=== PATIENT | female | born 1935 | race Two or more races ===

== ENCOUNTER 2020-05-31 14:57 | Inpatient (IN) | payer MEDICARE, OTHER ==
[~2020-05-31] VITALS: Ht 167.6 cm; Wt 64.0 kg
[2020-05-31 16:27] LABS: ABG BASE EXCESS 0.7 mmol/L; ABG OXYGEN SATURATION 97.1 % (92.0-98.5); ABG PCO2 34.8 mmHg (35.0-45.0); ABG PH 7.459 (7.350-7.450); ABG PO2 92.1 mmHg (75.0-100.0); AaDO2 131.4 mmHg; COHb 0.8 % (0.5-1.5); O2Hb 96.3 % (94.0-97.0); SITE, ABG Right Brachial; VENT MODE, BG nasal cannula
--- NOTE | 2020-05-31 16:37 | NUR ---
Patient awake non distress oxygen @ 2 ,hooked in the monitor ,ekg ,blood drw .
--- NOTE | 2020-05-31 16:50 | NUR ---
.Patient has x 1 BM keep patient clean and dry ,covid swab obtained and send to lab
[2020-05-31 17:11] LABS: BASOPHILS % (AUTO) 0.3 % (0.0-2.0); EOSINOPHILS % (AUTO) 0.1 % (0.0-6.0); HEMATOCRIT 37 % (33-45); LYMPHOCYTES # (AUTO) 0.8 /CMM (0.8-4.8); LYMPHOCYTES % (AUTO) 13.9 % (20.0-44.0); MEAN CORPUSCULAR HGB CONC 33 g/dl (31.0-36.0); MEAN CORPUSCULAR VOLUME 87 fL (82-100); MONOCYTES # (AUTO) 0.2 /CMM (0.1-1.30); MONOCYTES % (AUTO) 3.2 % (2.0-12.0); NEUTROPHILS # (AUTO) 4.5 /CMM (1.8-8.9); NEUTROPHILS % (AUTO) 82.5 % (43.0-81.0); PLATELET COUNT (AUTO) 181 /CMM (150-450); RED BLOOD CELL COUNT(AUTO) 4.22 MIL/uL (4.0-5.2); WHITE BLOOD COUNT (AUTO) 5.4 K/uL (4.3-11.0)
--- NOTE | 2020-05-31 17:29 | NUR ---
Patient agrees for in and out cath noted sterile technue ,urine obatined and send to lab .
[2020-05-31 17:53] LABS: CALCIUM, SERUM 9.1 mg/dL (8.5-10.1); CREATININE 1.3 mg/dL (0.6-1.3); POTASSIUM 4.2 mmol/L (3.5-5.1)
[2020-05-31 17:59] LABS: ALBUMIN 2.7 g/dL (3.4-5.0); BILIRUBIN,DIRECT 0.2 mg/dL (0.0-0.2); BILIRUBIN,TOTAL 0.5 mg/dL (0.2-1.0); TOTAL PROTEIN, SERUM 7.2 g/dL (6.4-8.2)
[2020-05-31 18:12] LABS: BILIRUBIN,URINE NEGATIVE (NEGATIVE); COLOR,URINE YELLOW (YELLOW); LEUKOCYTE ESTERASE ,URINE NEGATIVE (NEGATIVE); NITRITE, URINE NEGATIVE (NEGATIVE); PH,URINE 5.5 (5.0-8.0); PROTEIN,URINE 100 mg/dl (NEGATIVE); UGLUCOSE 500 MG/DL mg/dL (NEGATIVE); UROBILINOGEN,URINE 0.2 EU/dL (0.2)
--- NOTE | 2020-05-31 18:15 | NUR ---
MOVE SHEET SUBMITTED AND CALLED FOR TELE BED.
[2020-05-31 18:21] LABS: BACTERIA,URINE RARE /HPF (None Seen); SQUAMOUS EPITHELIAL CELL,UR 0-2 /HPF (None Seen); URINE AMORPHOUS URATE Few /HPF (None Seen); WBC,URINE 0-2 /HPF (0-3)
[2020-05-31] MEDS ORDERED: DEXAMETHASONE SOD PHOSPHATE 10 MG/ML VIAL IV ONE (18:30)
[2020-05-31] MEDS ORDERED: NS 0.9% IV ONE (18:30)
[2020-05-31] MEDS ORDERED: CEFTRIAXONE 1 G in IV D5W 50 ML IV ONE (18:30)
--- NOTE | 2020-05-31 18:46 | NUR ---
GOT BED 208
[2020-05-31] MEDS ORDERED: CEFTRIAXONE 1GM BAG (ER ONLY) 50 ML IV ONE (18:51)
[2020-05-31] MEDS ORDERED: DEXAMETHASONE SOD PHOSPHATE 10 MG/ML VIAL ONE (18:51)
[2020-05-31] MEDS: AZITHROMYCIN 500 MG in IV D5W 250 ML IV ONE ×2 (19:20→19:26)
[2020-05-31] MEDS ORDERED: DEXTROSE 50%-WATER 50 ML DISP.SYRIN IV PRN (19:30)
[2020-05-31] MEDS ORDERED: DEXAMETHASONE SOD PHOSPHATE 10 MG/ML VIAL IV SCH (19:30)
[2020-05-31] MEDS ORDERED: AZITHROMYCIN 500 MG in IV D5W 250 ML IV SCH (19:30)
--- NOTE | 2020-05-31 19:30 | NUR ---
Transfer care to 208 with monitor report to HERNANDO harris
--- NOTE | 2020-05-31 19:31 | NUR ---
TELE/RN ADMITTING NOTES: REPORT GIVEN BY HERNANDO CUEVA FROM ER. PT ARRIVED AT THE UNIT AT 1927 VIA GURNEY UNDER ACLS PROTOCOL, IN STABLE CONDITION. SOB PRESENT ON EXERTION AND COUGHING ACTIVELY. VERBALLY EXPENSIVE AND ABLE TO MAKE NEEDS KNOWN. DENIES PAIN AT THIS TIME. ON 3L OXYGEN VIA NC, SATURATING AT 96%. ORIENTED TO UNIT AND STAFF. A/OX2-3, WITH EPISODES ON CONFUSION. WELSH SPEAKING. NEEDS TRANSLATION. TELE READING OF SR. SKIN IS INTACT, DRY AND WARM TO TOUCH. INITIAL VS STABLE. ON BED REST FOR NOW. PER PT FAMILY, PT CAN AMBULATE BEFORE AND DUE TO RECENT WEAKNESS, PT HAS BEEN ON BED REST. IV ON THE RIGHT AC #20G INTACT AND PATENT. WITH ATBX RUNNING. SAFETY MEASURES INITIATED. BED IN LOW, LOCKED POSITION WITH SR UPX2. CALL LIGHT WITHIN REACH. WILL CONTINUE TO MONITOR ACCORDINGLY.
[2020-05-31 20:00] VITALS: BP 153/64
[2020-05-31] MEDS ORDERED: Z GUARD REMEDY 2 OZ OINT TP PRN (20:00)
[2020-05-31] MEDS ORDERED: ONDANSETRON HCL/PF 4 MG/2 ML VIAL IVP PRN (20:00)
[2020-05-31] MEDS ORDERED: ENOXAPARIN SODIUM 40 MG/0.4 ML DISP.SYRIN SQ SCH (20:00)
[2020-05-31] MEDS: BLOOD SUGAR DIAGNOSTIC 1 EACH STRIP IN SCH ×2 (20:33→22:20)
[2020-05-31] MEDS: *INSULIN REGULAR(HUMULIN R)HUM 100 UNIT/ML VIAL SQ PRN ×2 (20:40→22:22)
--- NOTE | 2020-05-31 23:00 | NUR ---
TELE/RN NOTES: PT IV LINE STARTED TO HURT. INSERTED A NEW IV LINE ON THE LEFT UA #22G. INTACT AND PATENT.
[2020-06-01] VITALS: BP 129/72
[2020-06-01 04:00] VITALS: BP 154/64
[2020-06-01] MEDS: BLOOD SUGAR DIAGNOSTIC 1 EACH STRIP IN SCH ×4 (06:40→21:58)
[2020-06-01] MEDS: INSULIN REGULAR, HUMAN 100 UNIT/ML 3 ML VIAL SQ PRN ×3 (06:42→17:17)
--- NOTE | 2020-06-01 07:07 | NUR ---
TELE/RN CLOSING NOTES: PT REMAINS IN STABLE CONDITION. DENIES PAIN AT THIS TIME. ON 3L OXYGEN VIA NC, SATURATING AT 96%. A/OX2-3, WITH EPISODES ON CONFUSION. LITHUANIAN SPEAKING. NEEDS TRANSLATION. TELE READING OF SR. SKIN IS INTACT, DRY AND WARM TO TOUCH. ON BED REST FOR NOW. IV ON THE LEFT UA #22G INTACT AND PATENT. SAFETY MEASURES INITIATED. BED IN LOW, LOCKED POSITION WITH SR UPX2. CALL LIGHT WITHIN REACH. ALL NURSING NEEDS MET AND RENDERED. ALL DUE MEDS GIVEN ACCUCHECK FOR AC IS 243, ADMINISTERED 8 UNIT REG INSULIN PER SLIDING SCALE. GIVEN CRANBERRY JUICE PT. REQUESTED. WILL ENDORSE TO DAY SHIFT FOR MASSIMO.
[2020-06-01 07:27] LABS: BASOPHILS % (AUTO) 0.1 % (0.0-2.0); HEMATOCRIT 34 % (33-45); HEMOGLOBIN 10.8 g/dL (11.5-14.8); LYMPHOCYTES # (AUTO) 0.5 /CMM (0.8-4.8); LYMPHOCYTES % (AUTO) 13.5 % (20.0-44.0); MEAN CORPUSCULAR HGB CONC 32 g/dl (31.0-36.0); MEAN CORPUSCULAR VOLUME 89 fL (82-100); MONOCYTES # (AUTO) 0.1 /CMM (0.1-1.30); MONOCYTES % (AUTO) 3.7 % (2.0-12.0); NEUTROPHILS % (AUTO) 82.7 % (43.0-81.0); PLATELET COUNT (AUTO) 169 /CMM (150-450); RED BLOOD CELL COUNT(AUTO) 3.79 MIL/uL (4.0-5.2); WHITE BLOOD COUNT (AUTO) 3.7 K/uL (4.3-11.0)
--- NOTE | 2020-06-01 07:30 | NUR ---
CORRECTIONAL SUPERVISOR NOTES PT IN BED, AWAKE, ALERT AND VERBALLY RESPONSIVE, NO SIGN OF PAIN OR ANY DISCOMFORT, BREATHING PATTERN NORMAL, CALL LIGHT WITHIN REACH, ASSISTED WITH BREAKFAST, KEPT SENIOR SHAREPOINT ARCHITECT BED, NEEDS ATTENDED.
[2020-06-01 07:39] LABS: ALBUMIN 2.3 g/dL (3.4-5.0); BILIRUBIN,TOTAL 0.4 mg/dL (0.2-1.0); CALCIUM, SERUM 8.4 mg/dL (8.5-10.1); CREATININE 1.1 mg/dL (0.6-1.3); PHOSPHORUS 3.7 mg/dL (2.5-4.9); POTASSIUM 4.5 mmol/L (3.5-5.1); TOTAL PROTEIN, SERUM 6.6 g/dL (6.4-8.2)
[2020-06-01 07:51] LABS: THYROID STIMULATING HORMONE 0.098 uIU/mL (0.358-3.74)
[2020-06-01 08:00] VITALS: BP 135/66
[2020-06-01] MEDS: DEXAMETHASONE SOD PHOSPHATE 10 MG/ML VIAL IV SCH (08:56)
[2020-06-01] MEDS: PANTOPRAZOLE 40 MG TABLET.DR PO SCH (08:56)
[2020-06-01 10:08] LABS: ABG BASE EXCESS 2.3 mmol/L; ABG OXYGEN SATURATION 97.4 % (92.0-98.5); ABG PCO2 39.6 mmHg (35.0-45.0); ABG PH 7.444 (7.350-7.450); ABG PO2 96.4 mmHg (75.0-100.0); MetHb 0.3 % (0.0-1.5); O2Hb 97.1 % (94.0-97.0); SITE, ABG Right Radial; VENT MODE, BG 3 L
[2020-06-01] MEDS ORDERED: ASPI-1420 PO (11:59)
[2020-06-01] MEDS ORDERED: LOSA50TA39 PO (11:59)
[2020-06-01] MEDS ORDERED: GLIM4TAB37 PO (11:59)
[2020-06-01] MEDS ORDERED: CHOL100040 PO (11:59)
[2020-06-01] MEDS ORDERED: MECL-159 PO (11:59)
[2020-06-01] MEDS ORDERED: CLOP75TA15 PO (11:59)
[2020-06-01] MEDS ORDERED: SITA1TAB2 PO (11:59)
[2020-06-01] MEDS ORDERED: ROSU20TA32 PO (11:59)
[2020-06-01] MEDS ORDERED: LINA145C PO (11:59)
[2020-06-01] MEDS ORDERED: HYDR12.55 PO (11:59)
[2020-06-01] MEDS ORDERED: LORA-258 PO (11:59)
[2020-06-01] MEDS ORDERED: IBUP-1955 PO (11:59)
[2020-06-01] MEDS ORDERED: ALEN70TA69 PO (11:59)
[2020-06-01 12:00] VITALS: BP 150/66
--- NOTE | 2020-06-01 13:00 | NUR ---
OFFICE SUPPORT SPECIALIST NOTES PT IN BED, ASLEEP, EASY TO AROUSE, ALERT, WITH CONFUSION, NO SIGN OF PAIN, NOT IN DISTRESS, ASSISTED WITH LUNCH, CALL LIGHT WITHIN REACH, FAMILY INFORMED OF PLAN OF CARE, VERBALIZED UNDERSTANDING, NEEDS ATTENDED.
[2020-06-01] MEDS: ASPIRIN 81 MG TAB.CHEW PO SCH (14:53)
[2020-06-01] MEDS: VALSARTAN 80 MG TABLET PO SCH (14:53)
[2020-06-01 16:00] VITALS: BP 154/67
[2020-06-01] MEDS: ENOXAPARIN SODIUM 40 MG/0.4 ML DISP.SYRIN SQ SCH (17:18)
--- NOTE | 2020-06-01 19:00 | NUR ---
OIL PIPELINE OPERATOR NOTES PT IN BED, AWAKE, ALERT AND VERBALLY RESPONSIVE, NO COMPLAINT OF PAIN, RESPIRATIONS NORMAL, CALL LIGHT WITHIN REACH, PM MEDS GIVEN, BLOOD SUGAR CHECKED, PM CARE PROVIDED, ALL NEEDS ATTENDED.
[2020-06-01] MEDS ORDERED: NS 0.9% IV SCH ×2 (19:30)
[2020-06-01] MEDS ORDERED: CEFTRIAXONE IV SCH ×2 (19:30)
[2020-06-01] MEDS: CEFTRIAXONE 1 G in IV NS 0.9% 50 ML IV SCH (19:42)
--- NOTE | 2020-06-01 19:50 | NUR ---
FORENSIC SPECIALIST OPENING NOTES RECEIVED PATIENT IN BED, ALERT AND ORIENTED X 2-3. VERBALLY RESPONSIVE AND ABLE TO FOLLOW DIRECTION. BREATHING REGULAR AND UNLABORED ON OXYGEN AT 3L/MIN VIA NASAL CANNULA, LATEST SPO2 97%. LEFT UPPER ARM G22 IV LINE INTACT AND PATENT, FLUSHING WELL WITH NO BLEEDING OR S/S OF INFILTRATION NOTED. ON CARDIAC MONITORING WITH SINUS BRADYCARDIA AT 55bpm. DENIES PAIN/DISCOMFORT AT THIS TIME. BED LOW AND LOCKED ON SEMI FOWLERS POSITION. CALL LIGHT IN REACH. MAINTAINED ON CONTACT/DROPLET ISOLATION FOR COVID19. PROPER HAND WASHING AND ISOLATION PRECAUTION OBSERVED. WILL CONTINUE TO MONITOR.
[2020-06-01 20:00] VITALS: BP 149/85
[2020-06-01] MEDS: AZITHROMYCIN 500 MG in IV D5W 250 ML IV SCH (20:14)
[2020-06-01] MEDS: *INSULIN REGULAR(HUMULIN R)HUM 100 UNIT/ML VIAL SQ PRN (22:07)
[2020-06-02] VITALS: BP 155/67
[2020-06-02 04:00] VITALS: BP 152/70
[2020-06-02] MEDS: BLOOD SUGAR DIAGNOSTIC 1 EACH STRIP IN SCH ×4 (06:31→22:22)
[2020-06-02] MEDS: PANTOPRAZOLE 40 MG TABLET.DR PO SCH (06:31)
[2020-06-02] MEDS: INSULIN REGULAR, HUMAN 100 UNIT/ML 3 ML VIAL SQ PRN ×3 (06:32→17:23)
--- NOTE | 2020-06-02 06:50 | NUR ---
ADMINISTRATIVE OFFICE ASSISTANT CLOSING NOTES PATIENT IN BED, ALERT AND ORIENTED X 2. AFEBRILE WITH NO S/S OF DISTRESS OBSERVED. LEFT UPPER ARM G22 IV LINE PATENT AND FLUSHING WELL. MAINTAINED ON CARDIAC MONITORING WITH NSR AT 68bpm. NO S/S OF PAIN/DISCOMFORT NOTED AT THIS TIME. BED LOW AND LOCKED ON SEMI FOWLERS POSITION. CALL LIGHT IN REACH. WILL ENDORSE TO MORNING SHIFT FOR MASSIMO.
[2020-06-02 07:09] LABS: BASOPHILS % (AUTO) 0.3 % (0.0-2.0); HEMATOCRIT 35 % (33-45); HEMOGLOBIN 11.4 g/dL (11.5-14.8); LYMPHOCYTES # (AUTO) 0.6 /CMM (0.8-4.8); LYMPHOCYTES % (AUTO) 6.9 % (20.0-44.0); MEAN CORPUSCULAR HGB CONC 33 g/dl (31.0-36.0); MEAN CORPUSCULAR VOLUME 88 fL (82-100); MONOCYTES # (AUTO) 0.3 /CMM (0.1-1.30); MONOCYTES % (AUTO) 2.9 % (2.0-12.0); NEUTROPHILS # (AUTO) 7.9 /CMM (1.8-8.9); NEUTROPHILS % (AUTO) 89.9 % (43.0-81.0); PLATELET COUNT (AUTO) 210 /CMM (150-450); RED BLOOD CELL COUNT(AUTO) 3.98 MIL/uL (4.0-5.2); WHITE BLOOD COUNT (AUTO) 8.8 K/uL (4.3-11.0)
[2020-06-02 07:23] LABS: CALCIUM, SERUM 8.5 mg/dL (8.5-10.1); CREATININE 1.1 mg/dL (0.6-1.3); MAGNESIUM 2.1 mg/dL (1.8-2.4); PHOSPHORUS 3.4 mg/dL (2.5-4.9); POTASSIUM 4.2 mmol/L (3.5-5.1)
[2020-06-02 08:00] VITALS: BP 138/59
[2020-06-02] MEDS: ASPIRIN 81 MG TAB.CHEW PO SCH (09:24)
[2020-06-02] MEDS: DEXAMETHASONE SOD PHOSPHATE 10 MG/ML VIAL IV SCH (09:26)
[2020-06-02] MEDS: ENOXAPARIN SODIUM 40 MG/0.4 ML DISP.SYRIN SQ SCH ×2 (09:26→21:17)
[2020-06-02] MEDS: VALSARTAN 80 MG TABLET PO SCH (09:26)
--- NOTE | 2020-06-02 11:59 | NUR ---
RN NOTE Insulin held d/t poor PO intake. BS 183. PO fluids encouraged, patient drank 1 cup water and one apple juice.
[2020-06-02 12:00] VITALS: BP 144/65
[2020-06-02] MEDS: ACETAMINOPHEN 325 MG TABLET PO PRN (13:09)
[2020-06-02 16:00] VITALS: BP 143/64
--- NOTE | 2020-06-02 19:00 | NUR ---
RN OPENING NOTES Received patient asleep, resting on bed. On O2 @ 5LPM, saturating well, no s/sx of discomfort noted at this time. On tele monitor with NSR noted. Kept on bed clean, dry and comfortable. On fall and aspiration precautions. Will continue to monitor accordingly.
--- NOTE | 2020-06-02 19:01 | NUR ---
RN CLOSING NOTE Patient is resting in bed, A/O x3, RR 22, saturating 93% on 5L NC. IV line is clean and intact flushing well. All patient needs met, all due medications given, patient kept clean and dry throughout the shift. Fall safety and aspiration precautions enforced. Will endorse to fermenting cellar dropper.
--- NOTE | 2020-06-02 19:26 | NUR ---
RN NOTE Telephone consent obtained from family specified on the face sheet: Tasha for convalescent plasma. Co-signed with RN.
[2020-06-02] MEDS: CEFTRIAXONE 1 G in IV NS 0.9% 50 ML IV SCH (19:27)
[2020-06-02 20:00] VITALS: BP 149/56
[2020-06-02] MEDS ORDERED: REMDESIVIR (CHARGED) 200 MG, *LOADING DOSE 1 EA in IV NS 0.9% 210 ML IV ONE (20:00)
[2020-06-02] MEDS: AZITHROMYCIN 500 MG in IV D5W 250 ML IV SCH (21:11)
[2020-06-02] MEDS: *INSULIN REGULAR(HUMULIN R)HUM 100 UNIT/ML VIAL SQ PRN (22:18)
[2020-06-03] VITALS: BP 143/66
[2020-06-03 04:00] VITALS: BP 160/69
[2020-06-03] MEDS ORDERED: BENZONATATE 100 MG CAPSULE PO PRN (04:00)
[2020-06-03] MEDS: PANTOPRAZOLE 40 MG TABLET.DR PO SCH (06:43)
[2020-06-03] MEDS: INSULIN REGULAR, HUMAN 100 UNIT/ML 3 ML VIAL SQ PRN ×2 (06:43→17:47)
[2020-06-03] MEDS: BLOOD SUGAR DIAGNOSTIC 1 EACH STRIP IN SCH ×4 (06:43→22:11)
--- NOTE | 2020-06-03 07:14 | NUR ---
RN CLOSING NOTES Pt asleep on bed. No new complaints made. All nursing needs attended. NSR on tele monitor. Kept on bed clean, dry and comfortable. Endorsed.
[2020-06-03 07:55] LABS: BASOPHILS % (AUTO) 0.3 % (0.0-2.0); HEMATOCRIT 34 % (33-45); HEMOGLOBIN 11.1 g/dL (11.5-14.8); LYMPHOCYTES # (AUTO) 0.8 /CMM (0.8-4.8); LYMPHOCYTES % (AUTO) 6.4 % (20.0-44.0); MEAN CORPUSCULAR HGB CONC 33 g/dl (31.0-36.0); MEAN CORPUSCULAR VOLUME 88 fL (82-100); MONOCYTES # (AUTO) 0.4 /CMM (0.1-1.30); MONOCYTES % (AUTO) 3.1 % (2.0-12.0); NEUTROPHILS # (AUTO) 11.2 /CMM (1.8-8.9); NEUTROPHILS % (AUTO) 90.2 % (43.0-81.0); PLATELET COUNT (AUTO) 272 /CMM (150-450); WHITE BLOOD COUNT (AUTO) 12.4 K/uL (4.3-11.0)
[2020-06-03 08:00] LABS: ALBUMIN 2.3 g/dL (3.4-5.0); BILIRUBIN,DIRECT 0.2 mg/dL (0.0-0.2); BILIRUBIN,TOTAL 0.4 mg/dL (0.2-1.0); CALCIUM, SERUM 8.6 mg/dL (8.5-10.1); CREATININE 1.1 mg/dL (0.6-1.3); MAGNESIUM 2.3 mg/dL (1.8-2.4); PHOSPHORUS 3.2 mg/dL (2.5-4.9); POTASSIUM 3.9 mmol/L (3.5-5.1); TOTAL PROTEIN, SERUM 6.9 g/dL (6.4-8.2)
--- NOTE | 2020-06-03 08:03 | NUR ---
TELE/RN OPENING NOTES RECEIVED PATIENT ON BED AWAKE, ALERT AND ORIENTED X2-3. PATIENT IS ON OXYGEN VIA NONREBREATHER MASK , PATIENT SAo2 89-80 NILE YBARRA IS AWARE NO NEW ORDER AT THIS TIME. TELE MONITOR WAS IN PLACE READING SINUS RHYTHM 81 BPM. NO COMPLAINED OF PAIN NOTED. WILL CONTINUE TO MONITOR.
[2020-06-03] MEDS: VALSARTAN 80 MG TABLET PO SCH (08:38)
[2020-06-03] MEDS: ASPIRIN 81 MG TAB.CHEW PO SCH (08:38)
[2020-06-03] MEDS: DEXAMETHASONE SOD PHOSPHATE 10 MG/ML VIAL IV SCH (08:39)
[2020-06-03 09:07] VITALS: BP 138/56
[2020-06-03] MEDS: ENOXAPARIN SODIUM 40 MG/0.4 ML DISP.SYRIN SQ SCH ×2 (11:03→21:19)
[2020-06-03 13:34] VITALS: BP 127/79
[2020-06-03 17:34] VITALS: BP 162/74
[2020-06-03] MEDS: CEFTRIAXONE 1 G in IV NS 0.9% 50 ML IV SCH (18:31)
--- NOTE | 2020-06-03 19:19 | NUR ---
TELE/RN CLOSING NOTES PATIENT IS ON BED. ALERT AND ORIENTED X2-3. NO COMPLAINED OF NOTED AT THIS TIME. PATIENT IN NO APPARENT RESPIRATORY DISTRESS NOTED. PATIENT IS ON 15L/MIN OXYGEN VIA NONREBREATHER MASK . ON TELE MONITOR READING SINUS RHYTHM 87 BPM. IV ACCESS AT LEFT UPPER ARM # 22G PATENT AND INTACT. SEEN AND EXAMINED BY MD WITH ORDERS MADE AND CARRIED OUT. ALL DUE MEDICATIONS WAS GIVEN. SAFETY PRECAUTIONS WAS IN PLACED. BED IN LOWEST POSITION AND LOCKED. SIDERAILS UP X 2. CALL LIGHT WITHIN REACH. WILL ENDORSED TO WAIT STAFF FOR MASSIMO.
[2020-06-03] MEDS: REMDESIVIR (CHARGED) 100 MG in IV NS 0.9% 230 ML IV SCH (19:54)
[2020-06-03 20:00] VITALS: BP 156/96
--- NOTE | 2020-06-03 20:00 | NUR ---
RECEIVED ALERT AND ORIENTATED X4 SMILING SHE STATED SHE DOESN'T WANT TO EAT. i FED HER 3 SPOONFUL OF PEACHES AND SHE DRANK SOME ORANGE JUICE ON A REBREATHER MASK AND SATS 94 - 97 % NOTED WHEN PLACED ON THE NC 6 LITERS SHE DESATS TO 87 QUICKLY
[2020-06-03] MEDS: AZITHROMYCIN 500 MG in IV D5W 250 ML IV SCH (20:43)
[2020-06-03] MEDS: *INSULIN REGULAR(HUMULIN R)HUM 100 UNIT/ML VIAL SQ PRN (22:16)
[2020-06-04] VITALS (7 sets, daily range): BP systolic 131–166; BP diastolic 69–74
[2020-06-04] MEDS: ACETAMINOPHEN 325 MG TABLET PO PRN (05:09)
--- NOTE | 2020-06-04 05:42 | NUR ---
ENDING NOTES: PATIENT THRU THE NIGHT WOULD HAVE ANXITY AND THEN SHE WOULD DESAT TO 85 - 88% SHE SAID SHE IS TIRED OF THE MASK (REBREATHER) WARM BLANKET GIVEN AND REASURED HER AND SHED GO BACK TO SLEEP AND SATS UP TO 95% RESP CAME TO SEE HER WHEN I CALLED HI TO COME CHECK HER D/T LOW SAT, NO CHANGE. SHE REMAIN COMFORTABLE AT THIS TIME SATS 95% REBREATHER EYES CLOSED
[2020-06-04] MEDS: BLOOD SUGAR DIAGNOSTIC 1 EACH STRIP IN SCH ×4 (06:43→21:38)
[2020-06-04] MEDS: INSULIN REGULAR, HUMAN 100 UNIT/ML 3 ML VIAL SQ PRN ×2 (06:46→14:29)
--- NOTE | 2020-06-04 07:00 | NUR ---
RN NOTE PT IS ADMITTED UNDER RESPIRATORY FAILURE, PNEUMONIA, AND TESTS POSITIVE FOR COVID. MEDICAL HISTORY OF CVA, HTN, DM, AND ASTHMA. SURGICAL HISTORY OF CABG. NO KNOWN ALLERGIES. PT IS CURRENTLY A&Ox3. PT IS ON 15L NON REBREATHER MASK AND SATURATES AT 92%. PT IS SINUS RHYTHM WITH EPISODES OF SINUS TACHYCARDIA. PT IS INCONTINENT. PT IS ON BEDREST. SKIN IS INTACT. PT IS ON A CARDIAC DIET. MIDLINE PRESENT IN THE RIGHT UPPER ARM. PT BED IS IN THE LOWEST POSITION WITH BED RAILS UP, CALL LIGHT WITHIN REACH. WILL CONTINUE TO MONITOR.
[2020-06-04 08:13] LABS: BASOPHILS % (AUTO) 0.4 % (0.0-2.0); HEMATOCRIT 36 % (33-45); HEMOGLOBIN 11.5 g/dL (11.5-14.8); LYMPHOCYTES # (AUTO) 0.5 /CMM (0.8-4.8); LYMPHOCYTES % (AUTO) 3.7 % (20.0-44.0); MEAN CORPUSCULAR HGB CONC 32 g/dl (31.0-36.0); MEAN CORPUSCULAR VOLUME 89 fL (82-100); MONOCYTES # (AUTO) 0.4 /CMM (0.1-1.30); MONOCYTES % (AUTO) 3.1 % (2.0-12.0); NEUTROPHILS # (AUTO) 12.2 /CMM (1.8-8.9); NEUTROPHILS % (AUTO) 92.8 % (43.0-81.0); PLATELET COUNT (AUTO) 284 /CMM (150-450); RED BLOOD CELL COUNT(AUTO) 4.06 MIL/uL (4.0-5.2); WHITE BLOOD COUNT (AUTO) 13.2 K/uL (4.3-11.0)
[2020-06-04 08:45] LABS: ALBUMIN 2.3 g/dL (3.4-5.0); BILIRUBIN,DIRECT 0.3 mg/dL (0.0-0.2); BILIRUBIN,TOTAL 0.5 mg/dL (0.2-1.0); CALCIUM, SERUM 8.6 mg/dL (8.5-10.1); CREATININE 0.9 mg/dL (0.6-1.3); MAGNESIUM 2.1 mg/dL (1.8-2.4); PHOSPHORUS 2.7 mg/dL (2.5-4.9); POTASSIUM 3.8 mmol/L (3.5-5.1); TOTAL PROTEIN, SERUM 6.7 g/dL (6.4-8.2)
[2020-06-04] MEDS: DEXAMETHASONE SOD PHOSPHATE 10 MG/ML VIAL IV SCH (09:10)
[2020-06-04] MEDS: PANTOPRAZOLE 40 MG TABLET.DR PO SCH (09:10)
[2020-06-04] MEDS: ASPIRIN 81 MG TAB.CHEW PO SCH (09:10)
[2020-06-04] MEDS: VALSARTAN 80 MG TABLET PO SCH (09:12)
[2020-06-04] MEDS: ENOXAPARIN SODIUM 40 MG/0.4 ML DISP.SYRIN SQ SCH ×2 (09:14→21:27)
[2020-06-04] MEDS ORDERED: MECLIZINE HCL 25 MG TABLET PO PRN (15:30)
[2020-06-04] MEDS ORDERED: IBUPROFEN 600 MG TABLET PO PRN (15:30)
--- NOTE | 2020-06-04 18:13 | NUR ---
RN NOTE PT IS A&Ox3. PT IS CURRENTLY SLEEPING IN BED. PT O2 IS 93% WHILE ON 15L O2 VIA NONREBREATHER MASK. PT IS NORMAL SINUS RHYTHM. SALINE LOCK IS PRESENT IN THE LEFT UPPER ARM. PT IS INCONTINENT. PT IS CURRENTLY BEDBOUND. PT SKIN IS INTACT. PT IS ABLE TO FEED WITH ASSISTANCE. DIENT IS CCHO. PT BED IS IN LOWEST POSITION. BED RAILS ARE UP. CALL LIGHT IS WITHIN REACH.
[2020-06-04] MEDS: LORAZEPAM 0.5 MG TABLET PO PRN (18:21)
[2020-06-04] MEDS: CEFTRIAXONE 1 G in IV NS 0.9% 50 ML IV SCH (19:49)
--- NOTE | 2020-06-04 20:00 | NUR ---
TELE/RN NOTES RECEIVED PATIENT FROM HERNANDO GASTON FOR MASSIMO.
--- NOTE | 2020-06-04 20:30 | NUR ---
TELE/RN NOTES EQUAL OPPORTUNITY OFFICER TEAM CALLED, PATIENT DESTATING BELOW 70% 02 ON 10L OXYGEN NON REBREATHER MASK.
[2020-06-04] MEDS ORDERED: FUROSEMIDE 20 MG/2 ML VIAL IV STA (20:40)
--- NOTE | 2020-06-04 20:50 | NUR ---
TELE/RN NOTES AUDIO RECORDING ENGINEER OVER. PATIENT IS STABLE. ON HIGH FLOW OXYGEN, STATING AT 90%. V/S ARE STABLE. DR YBARRA ORDERS PLACED AND CARRIED OUT. WILL CONTINUE TO MONITOR PATIENT.
[2020-06-04 20:58] LABS: ABG BASE EXCESS -0.1 mmol/L; ABG OXYGEN SATURATION 83.5 % (92.0-98.5); ABG PCO2 32.1 mmHg (35.0-45.0); ABG PH 7.471 (7.350-7.450); ABG PO2 44.6 mmHg (75.0-100.0); AaDO2 636.3 mmHg; COHb 0.8 % (0.5-1.5); MetHb 0.3 % (0.0-1.5); O2Hb 82.6 % (94.0-97.0); SITE, ABG Right Radial; VENT MODE, BG NRB
[2020-06-04] MEDS: ATORVASTATIN 40 MG TABLET PO SCH (21:18)
[2020-06-04] MEDS: AZITHROMYCIN 500 MG in IV D5W 250 ML IV SCH (21:18)
[2020-06-04] MEDS: REMDESIVIR (CHARGED) 100 MG in IV NS 0.9% 230 ML IV SCH (21:18)
[2020-06-04] MEDS: *INSULIN REGULAR(HUMULIN R)HUM 100 UNIT/ML VIAL SQ PRN (21:27)
[2020-06-05] VITALS (7 sets, daily range): BP systolic 76–182; BP diastolic 41–87
[2020-06-05 05:53] LABS: BASOPHILS % (AUTO) 0.2 % (0.0-2.0); EOSINOPHILS % (AUTO) 0.2 % (0.0-6.0); HEMATOCRIT 37 % (33-45); HEMOGLOBIN 12.1 g/dL (11.5-14.8); LYMPHOCYTES # (AUTO) 0.4 /CMM (0.8-4.8); LYMPHOCYTES % (AUTO) 2.6 % (20.0-44.0); MEAN CORPUSCULAR HGB CONC 32 g/dl (31.0-36.0); MEAN CORPUSCULAR VOLUME 88 fL (82-100); MONOCYTES # (AUTO) 0.4 /CMM (0.1-1.30); MONOCYTES % (AUTO) 2.5 % (2.0-12.0); NEUTROPHILS # (AUTO) 14.3 /CMM (1.8-8.9); NEUTROPHILS % (AUTO) 94.5 % (43.0-81.0); PLATELET COUNT (AUTO) 363 /CMM (150-450); RED BLOOD CELL COUNT(AUTO) 4.25 MIL/uL (4.0-5.2); WHITE BLOOD COUNT (AUTO) 15.2 K/uL (4.3-11.0)
[2020-06-05 06:19] LABS: ALANINE AMINOTRANSFERASE 23 U/L (12-78); ALBUMIN 2.5 g/dL (3.4-5.0); ALKALINE PHOSPHATASE 73 U/L (46-116); ASPARTATE AMINOTRANSFERASE 34 U/L (15-37); BILIRUBIN,DIRECT 0.3 mg/dL (0.0-0.2); BILIRUBIN,TOTAL 0.6 mg/dL (0.2-1.0); CALCIUM, SERUM 8.8 mg/dL (8.5-10.1); CARBON DIOXIDE 31 mmol/L (21-32); CHLORIDE 101 mmol/L (98-107); CREATININE 1.2 mg/dL (0.6-1.3); GLUCOSE 305 mg/dL (74-106); POTASSIUM 3.4 mmol/L (3.5-5.1); SODIUM SERUM 143 mmol/L (136-145); TOTAL PROTEIN, SERUM 7.4 g/dL (6.4-8.2); UREA NITROGEN, BLOOD 34 mg/dL (7-18)
[2020-06-05] MEDS: BLOOD SUGAR DIAGNOSTIC 1 EACH STRIP IN SCH ×4 (06:28→22:00)
--- NOTE | 2020-06-05 06:50 | NUR ---
TELE/RN CLOSING NOTES PATIENT IN BED RESTING. PATIENT IS ALERT AND ORIENTED X 1-2. PATIENT IN NO SIGNS OF SOB OR RESPIRATORY DISTRESS NOTED.BREATHING IS EVEN AND UNLABORED, PATIENT ON HIGH FLOW OXYGEN, STAT 93-95%. NO DISTRESS NOTED. PATIENT HAS LEFT UA #22G IV INTACT. PATIENT HAS SOFT WRIST RESTRAINT BILATERAL, CIRCULATION IS GOOD. ALL NEEDS HAVE BEEN MET DURING SHIFT. SAFETY MEASURES ARE IN PLACE, BED IS LOCKED AND PLACED IN THE LOW POSITION, SIDE RAILS UP X 3, CALL LIGHT IS WITHIN REACH. WILL ENDORSE CARE TO DAY SHIFT NURSE.
[2020-06-05] MEDS: ASPIRIN 81 MG TAB.CHEW PO SCH (08:52)
[2020-06-05] MEDS: CLOPIDOGREL BISULFATE 75 MG TABLET PO SCH (08:52)
[2020-06-05] MEDS: GLIMEPIRIDE 4 MG TABLET PO SCH (08:52)
[2020-06-05] MEDS: PANTOPRAZOLE 40 MG TABLET.DR PO SCH (08:55)
[2020-06-05] MEDS: ENOXAPARIN SODIUM 40 MG/0.4 ML DISP.SYRIN SQ SCH ×2 (08:56→23:14)
[2020-06-05] MEDS ORDERED: POTASSIUM CHLORIDE 20 MEQ TAB.PRT.SR PO SCH ×2 (09:00→11:00)
[2020-06-05] MEDS ORDERED: ASPIRIN EC 81 MG TABLET.DR PO SCH (09:00)
[2020-06-05] MEDS: VALSARTAN 80 MG TABLET PO SCH (09:05)
[2020-06-05] MEDS: LOSARTAN POTASSIUM 50 MG TABLET PO SCH (09:05)
[2020-06-05] MEDS: DEXAMETHASONE SOD PHOSPHATE 10 MG/ML VIAL IV SCH (10:10)
[2020-06-05 11:22] LABS: ABG BASE EXCESS 2.4 mmol/L; ABG OXYGEN SATURATION 95.8 % (92.0-98.5); ABG PCO2 29.5 mmHg (35.0-45.0); ABG PH 7.533 (7.350-7.450); ABG PO2 70.4 mmHg (75.0-100.0); AaDO2 613.1 mmHg; COHb 0.6 % (0.5-1.5); MetHb 0.3 % (0.0-1.5); O2Hb 94.9 % (94.0-97.0); SITE, ABG Left Brachial; VENT MODE, BG HFNC 40L 100% +NRB
[2020-06-05] MEDS: INSULIN REGULAR, HUMAN 100 UNIT/ML 3 ML VIAL SQ PRN ×4 (12:56→23:25)
[2020-06-05] MEDS: LORAZEPAM 0.5 MG TABLET PO PRN (13:33)
--- NOTE | 2020-06-05 18:48 | NUR ---
RN NOTES PATIENT IN BED RESTING. PATIENT APPEARS WITH LABORED BREATHING.PATIENT ON HIGH FLOW OXYGEN AND WITH NONE REBREATHER MASK SATURATING ABOVE 95%. ALL DUE MEDICATIONS ADMINISTERED. ALL NEEDS MET. MD AWARE OF ABG RESULTS. WILL ENDORSE CARE TO PM SHIFT.
--- NOTE | 2020-06-05 20:00 | NUR ---
RN OPENING NOTE: Received patient from AM nurse. Patient in bed sleeping comfortably. No respiratory distress noted. O2 sat monitor shows 91% on high flow oxygen with non-rebreather mask. MD aware of Oxygen saturation. Noted IV access on left upper arm 22 gauge, intact and patent. Safety measure in place, bed is in the lowest level, bed is locked, side rails x2 are up, and call light is within reach. Will continue to monitor.
[2020-06-05] MEDS: diphenhydrAMINE HCL 50 MG/ML VIAL IV ONE ×2 (20:30→22:43)
[2020-06-05] MEDS ORDERED: ACETAMINOPHEN 325 MG TABLET PO ONE (20:30)
[2020-06-05] MEDS: CEFTRIAXONE 1 G in IV NS 0.9% 50 ML IV SCH (20:40)
--- NOTE | 2020-06-05 20:40 | NUR ---
Noted patient O2 Saturation in low 80s, with pulse oxymeter on the left ear. Put a pulse Ox sensor on the right finger, tested pulse ox sensor on the left finger but the Oxygen saturation stayed consistent. Patient was awake and responsive but Oxygen saturation was low. Called Rapid response at 2049. Ed, ICU charge nurse, RT, Oanh was present. Checked blood sugar 425, rechecked resulted 402. Covered 20 units per sliding scale. Notified MD. Per MD, ordered stat ABG. Sent ABG to MD. Per MD, transfer patient to ICU. 2049 Vitals BP 131/68, HR 106, SPO2 83%, RR 30, Temp 98.8 2102 BP 133/73, HR 108, SPO2 88, RR 29, Temp 98.8 2109 BP 130/72, HR 106, SPO2 88, RR 30, Temp 98.8. Proceeded to transfer patient at 2113.
[2020-06-05] MEDS ORDERED: TOCILIZUMAB 400 MG in IV NS 0.9% 80 ML IV ONE (21:00)
[2020-06-05 21:05] LABS: ABG BASE EXCESS 5.2 mmol/L; ABG OXYGEN SATURATION 75.2 % (92.0-98.5); ABG PCO2 36.4 mmHg (35.0-45.0); ABG PH 7.509 (7.350-7.450); ABG PO2 38.8 mmHg (75.0-100.0); AaDO2 637.8 mmHg; COHb 0.4 % (0.5-1.5); MetHb 0.3 % (0.0-1.5); O2Hb 74.7 % (94.0-97.0); SITE, ABG Left Radial; VENT MODE, BG Hi Flow 60L 100% + NRB
--- NOTE | 2020-06-05 21:30 | NUR ---
Patient transferred to ICU, room 263 for continuity of care.
[2020-06-05] MEDS: ATORVASTATIN 40 MG TABLET PO SCH (22:00)
[2020-06-05] MEDS: AZITHROMYCIN 500 MG in IV D5W 250 ML IV SCH (22:40)
[2020-06-05] MEDS: REMDESIVIR (CHARGED) 100 MG in IV NS 0.9% 230 ML IV SCH (22:40)
--- NOTE | 2020-06-05 22:40 | NUR ---
RT Pt transported to ICU room 263. Pt intubated via 7.0 ETT @ 23cm lip line. Bilateral breath sounds noted. Pt placed on AC 20, 500, 100%, +10. ABG done 1 hr post intubation- no changes were made. No Respiratory distress noted at this time. SX DONE. Alarms are set and audible. Vent plugged into red outlet. Ambu bag at bedside. Will continue to monitor throughout shift
[2020-06-05] MEDS ORDERED: diphenhydrAMINE HCL 50 MG/ML VIAL ONE (22:42)
[2020-06-05] MEDS: PROPOFOL 100 ML IV PRN (23:04)
[2020-06-05 23:21] LABS: ABG BASE EXCESS 3.1 mmol/L; ABG OXYGEN SATURATION 89.5 % (92.0-98.5); ABG PCO2 42.8 mmHg (35.0-45.0); ABG PO2 59.8 mmHg (75.0-100.0); AaDO2 610.4 mmHg; COHb 0.2 % (0.5-1.5); MetHb 0.1 % (0.0-1.5); O2Hb 89.2 % (94.0-97.0); PEEP,BG 10 cm H2O; SITE, ABG Right Radial; VENT MODE, BG AC 20 500 100% +10; VT, ABG 500 mL
[2020-06-05] MEDS: INSULIN GLARGINE, 100 UNIT/ML CARTRIDGE SQ SCH (23:29)
[2020-06-05] MEDS ORDERED: NOREPINEPHRINE 8MG/250ML RTU 250 ML IV ONE (23:45)
[2020-06-05] MEDS: NOREPINEPHRINE 8 MG in IV NS 0.9% 242 ML IV PRN (23:53)
[2020-06-06] VITALS (75 sets, daily range): BP systolic 47–186; BP diastolic 26–83
--- NOTE | 2020-06-06 02:30 | NUR ---
iICU RN PT WAS TRANSFERRED FROM MS-2 ROOM 206 WITH SEVERE RESPIRATORY DISTRESS. PT IS CONFUSED, DISORIENTED, AGITATED, SWEATING. SOFT WRIST RESTRAINS ON.STAT INTUBATION WAS DONE BY ER MD. & WELL STAT CXR, WHICH SHOWS NEW LARGE LEFT SIDE PNEUMOTHORAX ER MD INSERTED LEFT CHEST TUBE & CONNECTED TO LOW SUCTIONING. F/C WAS INSERTED WELL TWO MORE IV SITES STARTED. BECAUSE PT WAS AGITATED STARTED PROPOFOL DRIP & WHEN BP DROPPED STARTED ALSO LEVOPHED DRIP ACCORDING MD ORDER.
[2020-06-06] MEDS: PROPOFOL 100 ML IV PRN ×4 (04:55→23:46)
[2020-06-06 05:53] LABS: ALANINE AMINOTRANSFERASE 21 U/L (12-78); ALBUMIN 2.3 g/dL (3.4-5.0); ALKALINE PHOSPHATASE 75 U/L (46-116); ASPARTATE AMINOTRANSFERASE 43 U/L (15-37); BILIRUBIN,DIRECT 0.5 mg/dL (0.0-0.2); BILIRUBIN,TOTAL 0.8 mg/dL (0.2-1.0); CALCIUM, SERUM 8.9 mg/dL (8.5-10.1); CARBON DIOXIDE 31 mmol/L (21-32); CHLORIDE 107 mmol/L (98-107); CREATININE 1.9 mg/dL (0.6-1.3); GLUCOSE 211 mg/dL (74-106); POTASSIUM 3.3 mmol/L (3.5-5.1); SODIUM SERUM 144 mmol/L (136-145); TOTAL PROTEIN, SERUM 6.8 g/dL (6.4-8.2); UREA NITROGEN, BLOOD 61 mg/dL (7-18)
[2020-06-06 05:57] LABS: BASOPHILS # (AUTO) 0.1 /CMM (0.0-0.2); BASOPHILS % (AUTO) 0.3 % (0.0-2.0); HEMATOCRIT 36 % (33-45); HEMOGLOBIN 11.5 g/dL (11.5-14.8); LYMPHOCYTES # (AUTO) 0.6 /CMM (0.8-4.8); LYMPHOCYTES % (AUTO) 2.5 % (20.0-44.0); MEAN CORPUSCULAR HGB CONC 32 g/dl (31.0-36.0); MEAN CORPUSCULAR VOLUME 87 fL (82-100); MONOCYTES # (AUTO) 0.1 /CMM (0.1-1.30); MONOCYTES % (AUTO) 0.6 % (2.0-12.0); NEUTROPHILS # (AUTO) 23.1 /CMM (1.8-8.9); NEUTROPHILS % (AUTO) 96.6 % (43.0-81.0); PLATELET COUNT (AUTO) 496 /CMM (150-450); RED BLOOD CELL COUNT(AUTO) 4.08 MIL/uL (4.0-5.2); WHITE BLOOD COUNT (AUTO) 23.9 K/uL (4.3-11.0)
--- NOTE | 2020-06-06 08:00 | NUR ---
curriculum and instruction director received pt in bed intubated sedated on propofol vac sedation done pt wakes up moves all extremities attempting to pull tube st on monitor resp distress noted restarted pt on propofol for sedation, pt on pressor no picc line or mid line present orders are in awaiting for picc lline nurse to swing by, iv access patent x3 tejada patent pt is oliguric md Mcbride aware and Dr. Patton aware, chest tube present no tidling or bubbles noted no drain noted md dr. Mcbride aware chest xray indicted lung full expanded and tube in right place, inserted ng tube as ordered for meds positive placement present, turn and reposition in bed release restraints provided prom, checked for circulation and skin breakdown nothing noted, safety measures taken will cont to monitor.
[2020-06-06] MEDS: CLOPIDOGREL BISULFATE 75 MG TABLET PO SCH (08:42)
[2020-06-06] MEDS: GLIMEPIRIDE 4 MG TABLET PO SCH (08:42)
[2020-06-06] MEDS: ASPIRIN 81 MG TAB.CHEW PO SCH (08:42)
[2020-06-06] MEDS: DEXAMETHASONE SOD PHOSPHATE 10 MG/ML VIAL IV SCH (08:42)
[2020-06-06] MEDS: PANTOPRAZOLE 40 MG TABLET.DR PO SCH (08:42)
[2020-06-06] MEDS: LOSARTAN POTASSIUM 50 MG TABLET PO SCH (08:43)
[2020-06-06] MEDS: BLOOD SUGAR DIAGNOSTIC 1 EACH STRIP IN SCH ×4 (08:43→22:26)
[2020-06-06] MEDS: VALSARTAN 80 MG TABLET PO SCH (08:43)
[2020-06-06] MEDS: ENOXAPARIN SODIUM 40 MG/0.4 ML DISP.SYRIN SQ SCH ×2 (08:59→21:52)
[2020-06-06] MEDS: INSULIN REGULAR, HUMAN 100 UNIT/ML 3 ML VIAL SQ PRN ×3 (09:10→17:50)
[2020-06-06] MEDS: NOREPINEPHRINE 8 MG in IV NS 0.9% 242 ML IV PRN ×2 (09:38→20:12)
[2020-06-06] MEDS: HYDROCORTISONE SOD SUCCINATE 100 MG/2 ML VIAL IV SCH ×3 (09:39→21:52)
[2020-06-06] MEDS ORDERED: ETOMIDATE 2 MG/ML VIAL IV ONE (10:28)
[2020-06-06] MEDS ORDERED: SUCCINYLCHOLINE CHLORIDE 20 MG/ML VIAL IV ONE (10:28)
[2020-06-06] MEDS ORDERED: POTASSIUM CHLORIDE 10 MEQ TABLET.SA PO ONE (10:30)
[2020-06-06] MEDS: POTASSIUM CL. PREMIX PERIPHER. 50 ML IV SCH ×4 (11:52→14:48)
[2020-06-06 12:16] LABS: BAND % (MANUAL) 2 % (0.0-5.0); LYMPHOCYTES % (MANUAL) 2 % (16-48); NEUTROPHILS % (MANUAL) 96 (42-76)
--- NOTE | 2020-06-06 13:00 | NUR ---
agriculture scientist picc line rn at bedside inserted picc line r u a cxr done p. rn ok to use the line.
--- NOTE | 2020-06-06 17:00 | NUR ---
agricultural economics teacher convolesent plasma obtained and is running will continue to monitor.
--- NOTE | 2020-06-06 19:30 | NUR ---
RN NOTES RECEIVES PATIENT ORALLY INTUBATED WITH ETT 7 AND 23 CM AT LIP WITH VENT SETTING AC 20 TV 450 FIO2 60% ABD PEEP 10 TOLERATED WELL. NO SOB OR APPARENT DISTRESS. OPENS EYES PATIENT IS SEDATED WITH DIPRIVAN. SR ON TELE MONITOR. . WITH NGT INTACT AND PATENT. IV SITE ON LFA , FLOR AND CHIKA PICC LINE RUNNING WITH LEVOPHED AND PROPOFOL TITRATED PROTOCOL. LEFT CHEST TUBE WITH SMALL LEAK ON THE SIDE, SEALED, NO BUBBLING BILATERAL WRIST RESTRAINT KEPT IN PLACED. CIRCULATION CHECKED. KEPT PT CLEAN AND COMFORTABLE IN BED. KEPT CLEAN AND DRY. WILL CONTINUE TO MONITOR.
[2020-06-06] MEDS: CEFTRIAXONE 1 G in IV NS 0.9% 50 ML IV SCH (20:12)
[2020-06-06] MEDS: AZITHROMYCIN 500 MG in IV D5W 250 ML IV SCH (20:12)
[2020-06-06] MEDS: ATORVASTATIN 40 MG TABLET PO SCH (21:52)
[2020-06-06] MEDS: *INSULIN REGULAR(HUMULIN R)HUM 100 UNIT/ML VIAL SQ PRN (22:31)
[2020-06-06] MEDS: INSULIN GLARGINE, 100 UNIT/ML CARTRIDGE SQ SCH (22:37)
[2020-06-07] VITALS (98 sets, daily range): BP systolic 51–145; BP diastolic 32–74
--- NOTE | 2020-06-07 03:00 | NUR ---
RN NOTES BED BATH DONE ORAL CARE PROVIDED. TOLERATED WELL. CONTINUE TO TURN AND REPOSITION FOR SKIN CARE.
[2020-06-07] MEDS: HYDROCORTISONE SOD SUCCINATE 100 MG/2 ML VIAL IV SCH (05:05)
[2020-06-07 05:11] LABS: BASOPHILS # (AUTO) 0.1 /CMM (0.0-0.2); BASOPHILS % (AUTO) 0.4 % (0.0-2.0); EOSINOPHILS % (AUTO) 0.1 % (0.0-6.0); HEMATOCRIT 32 % (33-45); HEMOGLOBIN 10.3 g/dL (11.5-14.8); LYMPHOCYTES # (AUTO) 0.6 /CMM (0.8-4.8); LYMPHOCYTES % (AUTO) 2.9 % (20.0-44.0); MEAN CORPUSCULAR HGB CONC 32 g/dl (31.0-36.0); MEAN CORPUSCULAR VOLUME 87 fL (82-100); MONOCYTES # (AUTO) 0.1 /CMM (0.1-1.30); MONOCYTES % (AUTO) 0.4 % (2.0-12.0); NEUTROPHILS # (AUTO) 18.3 /CMM (1.8-8.9); NEUTROPHILS % (AUTO) 96.2 % (43.0-81.0); PLATELET COUNT (AUTO) 361 /CMM (150-450); RED BLOOD CELL COUNT(AUTO) 3.68 MIL/uL (4.0-5.2)
[2020-06-07 05:23] LABS: ALANINE AMINOTRANSFERASE 19 U/L (12-78); ALKALINE PHOSPHATASE 66 U/L (46-116); ASPARTATE AMINOTRANSFERASE 26 U/L (15-37); BILIRUBIN,DIRECT 0.6 mg/dL (0.0-0.2); BILIRUBIN,TOTAL 0.8 mg/dL (0.2-1.0); C-REACTIVE PROTEIN 16.7 mg/dL (0.0-0.9); CALCIUM, SERUM 8.3 mg/dL (8.5-10.1); CARBON DIOXIDE 30 mmol/L (21-32); CHLORIDE 105 mmol/L (98-107); CREATININE 2.1 mg/dL (0.6-1.3); GLUCOSE 321 mg/dL (74-106); POTASSIUM 3.6 mmol/L (3.5-5.1); SODIUM SERUM 145 mmol/L (136-145); TOTAL PROTEIN, SERUM 6.1 g/dL (6.4-8.2); UREA NITROGEN, BLOOD 74 mg/dL (7-18)
[2020-06-07] MEDS: PROPOFOL 100 ML IV PRN ×2 (06:55→16:06)
--- NOTE | 2020-06-07 07:00 | NUR ---
RN NOTES NO SIGNIFICANT CHANGES THROUGHOUT THE SHIFT./ AFEBRILE. VSS WITH PRESSORS. ETT AND VENT SETTING TOLERATED WELL. CONTINEU WITH SEDATION. IV SITE REMAINED INTACT AND PATENT. CHEST TUBE SECURED WITH LEAKS. DORAN CATH KEPT OFF FROM THE FLOOR. WILL ENDORSED CONTINUITY OF CARE TO AM NURSE.
[2020-06-07] MEDS: CLOPIDOGREL BISULFATE 75 MG TABLET PO SCH (08:36)
[2020-06-07] MEDS: GLIMEPIRIDE 4 MG TABLET PO SCH (08:36)
[2020-06-07] MEDS: BLOOD SUGAR DIAGNOSTIC 1 EACH STRIP IN SCH ×4 (08:36→21:00)
[2020-06-07] MEDS: ASPIRIN 81 MG TAB.CHEW PO SCH (08:36)
[2020-06-07] MEDS: PANTOPRAZOLE 40 MG TABLET.DR PO SCH (08:37)
[2020-06-07] MEDS: ENOXAPARIN SODIUM 40 MG/0.4 ML DISP.SYRIN SQ SCH (08:39)
[2020-06-07] MEDS: INSULIN REGULAR, HUMAN 100 UNIT/ML 3 ML VIAL SQ PRN ×3 (08:55→18:06)
[2020-06-07] MEDS ORDERED: ENOXAPARIN SODIUM 40 MG/0.4 ML DISP.SYRIN SQ SCH (09:00)
[2020-06-07] MEDS ORDERED: ALENDRONATE 70 MG TABLET PO SCH ×2 (09:00→15:30)
[2020-06-07] MEDS ORDERED: ENOXAPARIN SODIUM 30 MG/0.3 ML DISP.SYRIN SQ SCH (09:30)
[2020-06-07 09:37] LABS: ABG BASE EXCESS -0.5 mmol/L; ABG OXYGEN SATURATION 81.5 % (92.0-98.5); ABG PCO2 33.7 mmHg (35.0-45.0); ABG PH 7.452 (7.350-7.450); ABG PO2 45.3 mmHg (75.0-100.0); AaDO2 273.3 mmHg; COHb 0.1 % (0.5-1.5); MetHb 0.3 % (0.0-1.5); O2Hb 81.2 % (94.0-97.0); PEEP,BG 8 cm H2O; SITE, ABG Right Radial; VENT MODE, BG AC20 450 50% +8; VT, ABG 450 mL
[2020-06-07] MEDS: NOREPINEPHRINE 8 MG in IV NS 0.9% 242 ML IV PRN ×2 (09:48→20:01)
[2020-06-07] MEDS: PANTOPRAZOLE 40 MG/PACK PACK PO SCH (09:48)
--- NOTE | 2020-06-07 12:57 | NUR ---
rn icu received pt in bed intubated sedated on propofol vac sedation done pt wakes up moves all extremities attempting to pull tube st on monitor resp distress noted restarted pt on propofol for sedation, pt on pressor iv access patent x3 tejada patent pt is urine output is improving md Mcbride aware and Dr. SIMPSON ARAMANDIAN aware, chest tube present no tidling or bubbles noted no drain noted md dr. Mcbride aware chest xray indicted lung full expanded and tube in right place, ng tube patent for meds positive positive placement present, turn and reposition in bed release restraints provided prom, checked for circulation and skin breakdown nothing noted, safety measures taken will cont to monitor
--- NOTE | 2020-06-07 17:56 | NUR ---
RT NOTE Pt received intubated and on [facility] vent w ordered settings. Vent is plugged into red outlet. Alarms are set and audible w bmv @ hob. Ett is secure and patent. No resp distress noted t/o shift. Will continue to monitor. Addendum: 06/07/20 at 1822 by CLAIRE CANO RT Amended: Links added.
--- NOTE | 2020-06-07 19:20 | NUR ---
TRAINING AND DEVELOPMENT REP OPENING NOTES: Rec'd pt in bed, sedated. On mechanical ventilation, tolerating settings well. No SOB or resp distress noted. SR on tele monitor. Right NGT in place, NPO except meds. Left chest tube in place, hooked up to suction. No tidling noted. On bilateral soft wrist restraints, will remove per protocol. CHIKA PICC, LFA #20 and FLOR #[address] with Diprivan infusing at 25mcg/kg/min and Levo infusing at 0.15mcg/kg/min. Will titrate per protocol. Milian catheter in place, patent and draining urine via gravity. Safety measures in place. Will continue to monitor.
[2020-06-07] MEDS: CEFTRIAXONE 1 G in IV NS 0.9% 50 ML IV SCH (19:36)
[2020-06-07] MEDS: INSULIN GLARGINE, 100 UNIT/ML CARTRIDGE SQ SCH (21:02)
--- NOTE | 2020-06-07 21:06 | NUR ---
Received patient intubated on AC 20 400 70% +8. On ET tube 7.0 23cm @ lip. Ambu bag at bedside. Vent plugged into red outlet. No signs of respiratory distress noted. Suctioned small amounts of yellow thick secretions. Will continue to monitor. Addendum: 06/07/20 at 2109 by RUTH DONNELLY RT Amended: Links added.
[2020-06-08] VITALS (90 sets, daily range): BP systolic 62–165; BP diastolic 34–88
[2020-06-08] MEDS: PROPOFOL 100 ML IV PRN ×3 (02:24→16:55)
[2020-06-08] MEDS: IV NS 0.9% 250 ML IV PRN (03:11)
[2020-06-08 03:56] LABS: BASOPHILS # (AUTO) 0.1 /CMM (0.0-0.2); BASOPHILS % (AUTO) 0.2 % (0.0-2.0); EOSINOPHILS % (AUTO) 1.5 % (0.0-6.0); HEMATOCRIT 32 % (33-45); HEMOGLOBIN 10.4 g/dL (11.5-14.8); LYMPHOCYTES # (AUTO) 0.8 /CMM (0.8-4.8); LYMPHOCYTES % (AUTO) 3.4 % (20.0-44.0); MEAN CORPUSCULAR HGB CONC 33 g/dl (31.0-36.0); MEAN CORPUSCULAR VOLUME 87 fL (82-100); MONOCYTES % (AUTO) 0.1 % (2.0-12.0); NEUTROPHILS # (AUTO) 21.8 /CMM (1.8-8.9); NEUTROPHILS % (AUTO) 94.8 % (43.0-81.0); PLATELET COUNT (AUTO) 367 /CMM (150-450); RED BLOOD CELL COUNT(AUTO) 3.65 MIL/uL (4.0-5.2)
[2020-06-08 04:16] LABS: ALANINE AMINOTRANSFERASE 17 U/L (12-78); ALBUMIN 1.8 g/dL (3.4-5.0); ALKALINE PHOSPHATASE 67 U/L (46-116); ASPARTATE AMINOTRANSFERASE 28 U/L (15-37); BILIRUBIN,TOTAL 0.6 mg/dL (0.2-1.0); CARBON DIOXIDE 29 mmol/L (21-32); CHLORIDE 107 mmol/L (98-107); CREATININE 1.6 mg/dL (0.6-1.3); GLUCOSE 172 mg/dL (74-106); MAGNESIUM 2.4 mg/dL (1.8-2.4); PHOSPHORUS 3.3 mg/dL (2.5-4.9); POTASSIUM 3.1 mmol/L (3.5-5.1); SODIUM SERUM 145 mmol/L (136-145); TOTAL PROTEIN, SERUM 5.8 g/dL (6.4-8.2); UREA NITROGEN, BLOOD 73 mg/dL (7-18)
--- NOTE | 2020-06-08 06:59 | NUR ---
MACHINE BINDER STRIPPER CLOSING NOTES: No acute changes noted. Pt remains intubated on mechanical ventilation tolerating well. SR on tele monitor. Left NGT in place w/ Glucerna infusing at 35ml/hr. Right IJ TLC in place. w/ Tristan running at 0.5mcg/kg/min and 1/2NS at 75ml/hr. Milian catheter in place patent and draining urine via gravity. Flexiseal in place. Kept clean/dry. All due meds given as ordered. Safety measures in place. Will endorse to oncoming nurse for MASSIMO.
--- NOTE | 2020-06-08 07:15 | NUR ---
RN INITIAL NOTES RECEIVED PT INTUBATED, ON VENT. NO RESPIRATORY DISTRESS NOTED. NO SOB NOTED. NO SIGNS OF PAIN NOTED. RIGHT NGT IN PLACE, CLAMPED. LEFT CHEST TUBE IN PLACE. DRESSING IN PLACE. CHIKA PICC IN PLACE. PT ON DIPRIVAN AND LEVOPHED. WILL TITRATE ACCORDINGLY. BLE ELEVATED. WILL MONITOR
[2020-06-08] MEDS: NOREPINEPHRINE 8 MG in IV NS 0.9% 242 ML IV PRN ×2 (07:41→23:20)
[2020-06-08] MEDS: BLOOD SUGAR DIAGNOSTIC 1 EACH STRIP IN SCH ×4 (07:48→21:41)
[2020-06-08] MEDS: POTASSIUM CL. PREMIX PERIPHER. 50 ML IV SCH ×4 (07:53→11:24)
[2020-06-08] MEDS: GLIMEPIRIDE 4 MG TABLET PO SCH (08:21)
[2020-06-08] MEDS: PANTOPRAZOLE 40 MG/PACK PACK PO SCH (08:21)
[2020-06-08] MEDS: ASPIRIN 81 MG TAB.CHEW PO SCH (08:21)
[2020-06-08] MEDS: CLOPIDOGREL BISULFATE 75 MG TABLET PO SCH (08:21)
[2020-06-08] MEDS ORDERED: ENOXAPARIN SODIUM 40 MG/0.4 ML DISP.SYRIN SQ SCH (09:00)
[2020-06-08] MEDS: DEXAMETHASONE SOD PHOSPHATE 10 MG/ML VIAL IJ SCH (10:38)
[2020-06-08] MEDS: INSULIN REGULAR, HUMAN 100 UNIT/ML 3 ML VIAL SQ PRN ×2 (12:20→17:47)
--- NOTE | 2020-06-08 18:37 | NUR ---
RN CLOSING NOTES NO SIGNIFICANT CHANGE NOTED. PT REMAINS INTUBATED, ON VENT. REMAINS ON DIPRIVAN AND LEVO DRIP, TITRATED ACCORDINGLY. CHEST TUBE REMAINS IN PLACE. DORAN IN PLACE. KEPT CLEAN AND DRY. KEPT COMFORTABLE. REPOSITIONED WHEN ABLE DUE TO ISOLATION. WILL ENDORSE FOR CONTINUITY OF CARE.
--- NOTE | 2020-06-08 19:10 | NUR ---
CANDLE WICKER OPENING NOTES: Rec'd pt intubated 7.0/23cm at the lip and sedated. On mechanical ventilation tolerating settings well. No SOB or resp distress noted. Right nare NGT in place, clamped. Left chest tube in place w/ dressing intact. On bilateral soft wrist restraints. CHIKA PICC in place, patent and infusing Diprivan at 25mcg/kg/min and Levo at 0.1mcg/kg/min. Will titrate per protocol. Milian catheter in place, patent and draining urine via gravity. Safety measures in place. Will continue to monitor.
[2020-06-08] MEDS: CEFTRIAXONE 1 G in IV NS 0.9% 50 ML IV SCH (19:30)
--- NOTE | 2020-06-08 19:47 | NUR ---
HIDE MEASURING MACHINE OPERATOR NOTE: Spoke w/ Silviano, pharmacist regarding pt's Levo. BUD was 1900 and no new bag available. Stated ok to continue until new bag is made and brought up.
--- NOTE | 2020-06-08 20:48 | NUR ---
SENIOR SUPPORT ANALYST NOTE: RT titrated fio2 from 70% to 65%. Will continue to monitor closely.
[2020-06-08] MEDS: INSULIN GLARGINE, 100 UNIT/ML CARTRIDGE SQ SCH (21:50)
[2020-06-09] VITALS (94 sets, daily range): BP systolic 76–151; BP diastolic 27–88
--- NOTE | 2020-06-09 00:58 | NUR ---
RT NOTE Pt rec'd orally intubated via ETT 7.0 secured @ 23cm at the lipline. Pt on [facility] vent on AC mode settings as charted. Pt sx'd for thick small amt of pale yellow secretions. Alarms are set and audible. Ambu bag bedside. Vent plugged into red outlet. Will continue to monitor closely. Addendum: 06/09/20 at 0058 by REN FLORES RT Amended: Links added.
[2020-06-09] MEDS: PROPOFOL 100 ML IV PRN ×3 (02:35→17:20)
[2020-06-09] MEDS: IV NS 0.9% 250 ML IV PRN (04:40)
[2020-06-09 05:09] LABS: BASOPHILS % (AUTO) 0.2 % (0.0-2.0); EOSINOPHILS % (AUTO) 0.2 % (0.0-6.0); HEMATOCRIT 32 % (33-45); HEMOGLOBIN 10.1 g/dL (11.5-14.8); LYMPHOCYTES # (AUTO) 0.5 /CMM (0.8-4.8); LYMPHOCYTES % (AUTO) 4.3 % (20.0-44.0); MEAN CORPUSCULAR HGB CONC 32 g/dl (31.0-36.0); MEAN CORPUSCULAR VOLUME 89 fL (82-100); MONOCYTES # (AUTO) 0.3 /CMM (0.1-1.30); MONOCYTES % (AUTO) 2.2 % (2.0-12.0); NEUTROPHILS # (AUTO) 11.8 /CMM (1.8-8.9); NEUTROPHILS % (AUTO) 93.1 % (43.0-81.0); PLATELET COUNT (AUTO) 262 /CMM (150-450); RED BLOOD CELL COUNT(AUTO) 3.56 MIL/uL (4.0-5.2); WHITE BLOOD COUNT (AUTO) 12.7 K/uL (4.3-11.0)
[2020-06-09 05:25] LABS: CALCIUM, SERUM 8.2 mg/dL (8.5-10.1); CARBON DIOXIDE 26 mmol/L (21-32); CHLORIDE 110 mmol/L (98-107); CREATININE 1.5 mg/dL (0.6-1.3); GLUCOSE 200 mg/dL (74-106); MAGNESIUM 2.8 mg/dL (1.8-2.4); PHOSPHORUS 3.9 mg/dL (2.5-4.9); POTASSIUM 4.5 mmol/L (3.5-5.1); SODIUM SERUM 147 mmol/L (136-145); UREA NITROGEN, BLOOD 74 mg/dL (7-18)
--- NOTE | 2020-06-09 07:01 | NUR ---
ENGINEER CONDUCTOR CLOSING NOTES: No significan changes noted throughout shift. Remains intubated, on mechanical ventilation and sedated. Diprivan 25mcg/kg infusing through RIJ TLC as well as Levo at 0.04mcg/kg/min. Milian catheter in place draining urine via gravity. All due meds given as ordered. Safety measures in place. Will endorse to oncoming nurse for MASSIMO.
[2020-06-09] MEDS: BLOOD SUGAR DIAGNOSTIC 1 EACH STRIP IN SCH ×4 (07:54→23:10)
[2020-06-09] MEDS: GLIMEPIRIDE 4 MG TABLET PO SCH (08:25)
[2020-06-09] MEDS: DEXAMETHASONE SOD PHOSPHATE 10 MG/ML VIAL IJ SCH (08:25)
[2020-06-09] MEDS: CLOPIDOGREL BISULFATE 75 MG TABLET PO SCH (08:25)
[2020-06-09] MEDS: ASPIRIN 81 MG TAB.CHEW PO SCH (08:25)
[2020-06-09] MEDS: PANTOPRAZOLE 40 MG/PACK PACK PO SCH (08:25)
[2020-06-09] MEDS: NOREPINEPHRINE 8 MG in IV NS 0.9% 242 ML IV PRN (09:00)
[2020-06-09] MEDS: ENOXAPARIN SODIUM 40 MG/0.4 ML DISP.SYRIN SQ SCH (09:01)
[2020-06-09] MEDS: INSULIN REGULAR, HUMAN 100 UNIT/ML 3 ML VIAL SQ PRN ×2 (09:07→12:33)
[2020-06-09] MEDS: CEFTRIAXONE 1 G in IV NS 0.9% 50 ML IV SCH (19:51)
[2020-06-09] MEDS: INSULIN GLARGINE, 100 UNIT/ML CARTRIDGE SQ SCH (22:00)
[2020-06-10] VITALS (92 sets, daily range): BP systolic 67–150; BP diastolic 28–113
[2020-06-10] MEDS: PROPOFOL 100 ML IV PRN ×3 (02:34→21:29)
[2020-06-10 04:23] LABS: BASOPHILS % (AUTO) 0.4 % (0.0-2.0); EOSINOPHILS % (AUTO) 0.1 % (0.0-6.0); HEMATOCRIT 30 % (33-45); HEMOGLOBIN 9.5 g/dL (11.5-14.8); LYMPHOCYTES # (AUTO) 0.4 /CMM (0.8-4.8); LYMPHOCYTES % (AUTO) 2.8 % (20.0-44.0); MEAN CORPUSCULAR HGB CONC 32 g/dl (31.0-36.0); MEAN CORPUSCULAR VOLUME 88 fL (82-100); MONOCYTES # (AUTO) 0.3 /CMM (0.1-1.30); MONOCYTES % (AUTO) 2.7 % (2.0-12.0); NEUTROPHILS # (AUTO) 11.9 /CMM (1.8-8.9); PLATELET COUNT (AUTO) 253 /CMM (150-450); RED BLOOD CELL COUNT(AUTO) 3.36 MIL/uL (4.0-5.2); WHITE BLOOD COUNT (AUTO) 12.7 K/uL (4.3-11.0)
[2020-06-10 04:43] LABS: CALCIUM, SERUM 7.9 mg/dL (8.5-10.1); CARBON DIOXIDE 25 mmol/L (21-32); CHLORIDE 110 mmol/L (98-107); CREATININE 1.5 mg/dL (0.6-1.3); GLUCOSE 216 mg/dL (74-106); MAGNESIUM 2.7 mg/dL (1.8-2.4); PHOSPHORUS 4.4 mg/dL (2.5-4.9); POTASSIUM 4.1 mmol/L (3.5-5.1); SODIUM SERUM 147 mmol/L (136-145); UREA NITROGEN, BLOOD 78 mg/dL (7-18)
[2020-06-10] MEDS: BLOOD SUGAR DIAGNOSTIC 1 EACH STRIP IN SCH ×4 (08:11→21:46)
[2020-06-10] MEDS: CLOPIDOGREL BISULFATE 75 MG TABLET PO SCH (08:26)
[2020-06-10] MEDS: PANTOPRAZOLE 40 MG/PACK PACK PO SCH (08:26)
[2020-06-10] MEDS: GLIMEPIRIDE 4 MG TABLET PO SCH (08:26)
[2020-06-10] MEDS: ASPIRIN 81 MG TAB.CHEW PO SCH (08:26)
[2020-06-10] MEDS: DEXAMETHASONE SOD PHOSPHATE 10 MG/ML VIAL IJ SCH (08:26)
[2020-06-10] MEDS: INSULIN REGULAR, HUMAN 100 UNIT/ML 3 ML VIAL SQ PRN ×2 (09:21→12:05)
[2020-06-10] MEDS: ENOXAPARIN SODIUM 40 MG/0.4 ML DISP.SYRIN SQ SCH (09:21)
[2020-06-10 09:41] LABS: ABG BASE EXCESS -1.9 mmol/L; ABG OXYGEN SATURATION 92.9 % (92.0-98.5); ABG PCO2 35.5 mmHg (35.0-45.0); ABG PH 7.415 (7.350-7.450); ABG PO2 67.7 mmHg (75.0-100.0); COHb 0.3 % (0.5-1.5); MetHb 0.3 % (0.0-1.5); O2Hb 92.3 % (94.0-97.0); SITE, ABG Right Radial; VENT MODE, BG AC 20 400 55% +8
[2020-06-10] MEDS: NOREPINEPHRINE 8 MG in IV NS 0.9% 242 ML IV PRN (12:11)
[2020-06-10] MEDS: CEFTRIAXONE 1 G in IV NS 0.9% 50 ML IV SCH (20:13)
[2020-06-10] MEDS: INSULIN GLARGINE, 100 UNIT/ML CARTRIDGE SQ SCH (21:46)
--- NOTE | 2020-06-10 21:46 | NUR ---
lantus held at 2200 due to patient being npo.
[2020-06-11] VITALS (89 sets, daily range): BP systolic 68–170; BP diastolic 33–90
[2020-06-11] MEDS: NOREPINEPHRINE 8 MG in IV NS 0.9% 242 ML IV PRN (03:13)
[2020-06-11] MEDS: PROPOFOL 100 ML IV PRN ×3 (03:14→23:00)
--- NOTE | 2020-06-11 04:16 | NUR ---
RT NOTE Pt rec'd orally intubated via ETT 7.0 secured @ 23cm at the lipline. Pt on [facility] vent on AC mode settings as charted. Pt sx'd for thick mod amt of pale yellow secretions. Alarms are set and audible. Ambu bag bedside. Vent plugged into red outlet. Will continue to monitor closely. Addendum: 06/11/20 at 0416 by REN FLORES RT Amended: Links added.
--- NOTE | 2020-06-11 07:09 | NUR ---
CONVALESCENT PLASMA COMPLETE. NO SIGNS OF ANY ADVERSE REACTIONS
--- NOTE | 2020-06-11 08:00 | NUR ---
RN NOTES RECEIVED PATIENT THE BED EET SETTING, TOLERATED WELL, NO ACUTE RESPIRATORY DISTRESS, NO SIGNIFICANT CHANGE NOTED. PT REMAINS INTUBATED, ON VENT. ON DIPRIVAN 30MCG, AND LEVO DRIP 0.02, TITRATED ACCORDINGLY. CHEST TUBE REMAINS IN PLACE. DORAN IN PLACE. KEPT CLEAN AND DRY. NGT CLAMPED. KEPT COMFORTABLE. ASSIST TURN AND REPOSTION Q 2 HR. KEEP HOB ELEVATED. WILL MONITORING.
[2020-06-11 08:09] LABS: ABG BASE EXCESS -1.5 mmol/L; ABG OXYGEN SATURATION 91.5 % (92.0-98.5); ABG PH 7.416 (7.350-7.450); ABG PO2 64.3 mmHg (75.0-100.0); AaDO2 251.7 mmHg; COHb 0.3 % (0.5-1.5); MetHb 0.1 % (0.0-1.5); O2Hb 91.1 % (94.0-97.0); PEEP,BG 5 cm H2O; SITE, ABG Right Brachial; VT, ABG 400 mL
[2020-06-11 09:53] LABS: CALCIUM, SERUM 7.5 mg/dL (8.5-10.1); CARBON DIOXIDE 27 mmol/L (21-32); CHLORIDE 111 mmol/L (98-107); CREATININE 1.4 mg/dL (0.6-1.3); GLUCOSE 189 mg/dL (74-106); POTASSIUM 3.9 mmol/L (3.5-5.1); SODIUM SERUM 146 mmol/L (136-145); UREA NITROGEN, BLOOD 77 mg/dL (7-18)
[2020-06-11 10:05] LABS: BASOPHILS % (AUTO) 0.3 % (0.0-2.0); EOSINOPHILS % (AUTO) 1.4 % (0.0-6.0); HEMATOCRIT 28 % (33-45); HEMOGLOBIN 9.5 g/dL (11.5-14.8); LYMPHOCYTES # (AUTO) 0.4 /CMM (0.8-4.8); LYMPHOCYTES % (AUTO) 3.8 % (20.0-44.0); MEAN CORPUSCULAR HGB CONC 34 g/dl (31.0-36.0); MEAN CORPUSCULAR VOLUME 89 fL (82-100); MONOCYTES % (AUTO) 0.5 % (2.0-12.0); NEUTROPHILS # (AUTO) 9.4 /CMM (1.8-8.9); PLATELET COUNT (AUTO) 205 /CMM (150-450); RED BLOOD CELL COUNT(AUTO) 3.18 MIL/uL (4.0-5.2)
[2020-06-11] MEDS: PANTOPRAZOLE 40 MG/PACK PACK PO SCH (10:25)
[2020-06-11] MEDS: CLOPIDOGREL BISULFATE 75 MG TABLET PO SCH (10:25)
[2020-06-11] MEDS: ASPIRIN 81 MG TAB.CHEW PO SCH (10:25)
[2020-06-11] MEDS: DEXAMETHASONE SOD PHOSPHATE 10 MG/ML VIAL IJ SCH (10:26)
[2020-06-11] MEDS: GLIMEPIRIDE 4 MG TABLET PO SCH (10:26)
[2020-06-11] MEDS: ENOXAPARIN SODIUM 40 MG/0.4 ML DISP.SYRIN SQ SCH (10:26)
[2020-06-11] MEDS: BLOOD SUGAR DIAGNOSTIC 1 EACH STRIP IN SCH ×4 (11:01→22:05)
--- NOTE | 2020-06-11 18:45 | NUR ---
RN NOTES PM CARE DONE, SUCTION. NO SIGNIFICANT CHANGE NOTED. PT REMAINS INTUBATED, ON VENT. ON DIPRIVAN 30MCG,AND LEVO DRIP TITRATED 0.1 BECAUSE OF LOW BP, TITRATED ACCORDINGLY. CHEST TUBE REMAINS IN PLACE 2L OUTPUT. DORAN IN PLACE DARK TEA COLOR OUTPUT.WILL ENDORSE FOR CONTINUITY OF CARE.
--- NOTE | 2020-06-11 19:30 | NUR ---
RN NOTES RECEIVED PATIENT IN BED INTUBATED NO S/S OF ACUTE DISTRESS NOTED. VENT SETTING TOLERATING WELL ORDERED. DIPRIVAN RUNNING AT 30MCG/KG/HR AND MANPREET RUNNING AT 0.1 TOLERATING WELL. TELE MONITOR READING SR. RT NARE NGT TUBE CLAMPED.IV SITES INTACT PATENT FLUSHES WELL NO INFILTRATION NOTED. BILATERAL SOFT WRIST RESTRAINS IN PLACE RELEASED TO CHECK FOR SKIN BREAKDOWN AND CIRCULATION. CHEST TUBE IN PLACE. F/C INTACT YELLOW URINE VIA GRAVITY. ALL SAFETY MEASURES IN PLACE, CALL LIGHT WITHIN REACH. WILL CONT TO MONITOR FOR MASSIMO.
[2020-06-11] MEDS: CEFTRIAXONE 1 G in IV NS 0.9% 50 ML IV SCH (19:57)
--- NOTE | 2020-06-11 20:52 | NUR ---
RT NOTE Pt rec'd orally intubated via ETT 7.0 secured @ 23cm at the lipline. Pt on [facility] vent on AC mode settings as charted. Pt sx'd for thick mod amt of pale yellow secretions. Alarms are set and audible. Ambu bag bedside. Vent plugged into red outlet. Will continue to monitor closely. Addendum: 06/11/20 at 2052 by REN FLORES RT Amended: Links added.
[2020-06-11] MEDS: INSULIN GLARGINE, 100 UNIT/ML CARTRIDGE SQ SCH (22:00)
--- NOTE | 2020-06-11 22:00 | NUR ---
Lantus held at 2200 due to patient being NPO BS IS 209.
--- NOTE | 2020-06-11 23:44 | NUR ---
RT NOTE Pt rec'd orally intubated via ETT 7.0 secured @ 23cm at the lipline. Pt on mech vent on AC mode settings as charted. Pt sx'd for thick mod amt of pale yellow secretions. Alarms are set and audible. Ambu bag bedside. Vent plugged into red outlet. Will continue to monitor closely.
[2020-06-12] VITALS (86 sets, daily range): BP systolic 73–182; BP diastolic 23–101
[2020-06-12] MEDS: PROPOFOL 100 ML IV PRN ×3 (03:19→17:46)
[2020-06-12] MEDS: NOREPINEPHRINE 8 MG in IV NS 0.9% 242 ML IV PRN (03:43)
--- NOTE | 2020-06-12 05:00 | NUR ---
RN NOTES AM CARE PROVIDED, NO CHANGES NOTED VENT SETTING TOLERATING WELL ORDERED. SUCTION PROVIDED, MOUTH CARE GIVEN. BED BATH GIVEN TOLERATED WELL, CHEST TUBE IN PLACE. KEPT CLEAN DRY AND COMFORTABLE. ALL SAFETY MEASURES IN PLACE. WILL CONT TO MONITOR.
[2020-06-12 06:06] LABS: BASOPHILS % (AUTO) 0.2 % (0.0-2.0); EOSINOPHILS % (AUTO) 0.9 % (0.0-6.0); HEMATOCRIT 30 % (33-45); HEMOGLOBIN 9.7 g/dL (11.5-14.8); LYMPHOCYTES # (AUTO) 0.4 /CMM (0.8-4.8); LYMPHOCYTES % (AUTO) 3.6 % (20.0-44.0); MEAN CORPUSCULAR HGB CONC 33 g/dl (31.0-36.0); MEAN CORPUSCULAR VOLUME 88 fL (82-100); MONOCYTES % (AUTO) 0.2 % (2.0-12.0); NEUTROPHILS # (AUTO) 10.3 /CMM (1.8-8.9); NEUTROPHILS % (AUTO) 95.1 % (43.0-81.0); PLATELET COUNT (AUTO) 214 /CMM (150-450); RED BLOOD CELL COUNT(AUTO) 3.39 MIL/uL (4.0-5.2); WHITE BLOOD COUNT (AUTO) 10.9 K/uL (4.3-11.0)
[2020-06-12 06:18] LABS: CALCIUM, SERUM 8.3 mg/dL (8.5-10.1); CARBON DIOXIDE 25 mmol/L (21-32); CHLORIDE 115 mmol/L (98-107); CREATININE 1.3 mg/dL (0.6-1.3); GLUCOSE 227 mg/dL (74-106); MAGNESIUM 2.9 mg/dL (1.8-2.4); PHOSPHORUS 4.2 mg/dL (2.5-4.9); POTASSIUM 3.9 mmol/L (3.5-5.1); SODIUM SERUM 151 mmol/L (136-145)
[2020-06-12 06:23] LABS: UREA NITROGEN, BLOOD 78 mg/dL (7-18)
[2020-06-12] MEDS: BLOOD SUGAR DIAGNOSTIC 1 EACH STRIP IN SCH ×4 (07:28→21:40)
[2020-06-12] MEDS: ENOXAPARIN SODIUM 40 MG/0.4 ML DISP.SYRIN SQ SCH (07:35)
[2020-06-12] MEDS: PANTOPRAZOLE 40 MG/PACK PACK PO SCH (08:32)
[2020-06-12] MEDS: DEXAMETHASONE SOD PHOSPHATE 10 MG/ML VIAL IJ SCH (08:33)
[2020-06-12] MEDS: ASPIRIN 81 MG TAB.CHEW PO SCH (08:33)
[2020-06-12] MEDS: CLOPIDOGREL BISULFATE 75 MG TABLET PO SCH (08:33)
[2020-06-12] MEDS: GLIMEPIRIDE 4 MG TABLET PO SCH (09:00)
--- NOTE | 2020-06-12 11:53 | NUR ---
RN NOTES ALL INFORMATION HAS BEEN DISCUSSED WITH AM NURSE. PATIENT CONTINUES ON LEVO, DIPRIVAN, SEDATION VACATION DONE PT WAS AGITATED. IV LINES ARE INTACT PATENT FLUSHING WELL. F/C INTACT DARNING WELL, ALL SAFETY MEASURES IN PLACE. ENDORSED TO AM NURSE FOR MASSIMO.
[2020-06-12] MEDS: INSULIN REGULAR, HUMAN 100 UNIT/ML 3 ML VIAL SQ PRN ×2 (12:11→17:32)
--- NOTE | 2020-06-12 14:10 | NUR ---
MEDICAL AFFAIRS LEADER NOTES RECEIVED PT FROM KRISSY RN. PT IS SEDATED ON DIPRIVAN NO SOB OR DISCOMFORT NOTED AT THIS TIME. PT ON LEVOPHED 0.03 NG TUBE ASPIRATED NO RESIDUAL NOTED AUSCULTATED AND GURGLING SOUND NOTED. WILL CONTINUE TO MONITOR THE PT.
[2020-06-12] MEDS: CEFTRIAXONE 1 G in IV NS 0.9% 50 ML IV SCH ×2 (17:45→18:30)
--- NOTE | 2020-06-12 19:35 | NUR ---
PT REC'D ORALLY INTUBATED VIA ETT 7.0 SECURED @ 23 CM LIP LINE ON [facility] VENT WITH THE SETTINGS OF AC 20, 400, 50%,PEEP 8. NO RESPIRATORY DISTRESS NOTED AT THIS TIME. SX DONE . ALARMS ARE SET AND AUDIBLE. VENT PLUGGED INTO RED OUTLET. AMBU BAG @ BEDSIDE. WILL CONTINUE TO MONITOR Addendum: 06/13/20 at 0213 by VINAY ZAVALA RT Amended: Links added.
--- NOTE | 2020-06-12 19:40 | NUR ---
HERNANDO NOTE NR PLACEMENT AND PATENCY VERIFIED VIA AUSCULTATION AND VERIFICATION OF GASTRIC CONTENTS. Addendum: 06/12/20 at 2141 by LESLIE CONLEY RN NGT PLACEMENT
--- NOTE | 2020-06-12 19:40 | NUR ---
FERMENTER OPERATOR NOTES PT ON VENT AND DIPRIVAN, SEDATED NO SOB OR DISCOMFORT NOTED. ALL MEDS ADMINISTRATED. NO MAJOR CHANGES DURING SHIFT. ALL NEEDS ATTENDED. REPORT GIVEN TO LESLIE RN FOR MASSIMO.
[2020-06-12] MEDS: INSULIN GLARGINE, 100 UNIT/ML CARTRIDGE SQ SCH (21:41)
--- NOTE | 2020-06-12 21:41 | NUR ---
RN NOTE BLOOD SUGAR 185. REGULAR INSULIN AND LANTUS HELD DUE TO NPO DIAGNOSIS.
--- NOTE | 2020-06-12 23:00 | NUR ---
RN NOTE NOTE DWITH MAP > 65 CONSISTENTLY THROUGHOUT SHIFT. NOTED WITH MD RECOMENDATION TO START GLUCERNA 1.2 @20M/HOUR X 24 HOURS. NO FEEDING PUMP AVAILABLE. CALLED [facility] WHO STATES NO PUMP AVAILABLE. DR. HONEYCUTT NOTIFIED WHO STATES TO KEEP PT NPO FOR NOW.
[2020-06-13] VITALS (95 sets, daily range): BP systolic 76–158; BP diastolic 30–67
[2020-06-13] MEDS: PROPOFOL 100 ML IV PRN ×2 (01:56→14:26)
--- NOTE | 2020-06-13 02:00 | NUR ---
RN NOTE MAP > 65 THROUGHOUT SHIFT. ABLE TO TITRATE LEVOPHED PER PROTOCOL. WITH MD RECCOMENDATION TO INITIATE TUBE FEEDING GLUCERNA 1.2 @ 20CC/HOUR BUT NO FEEDING PUMP IS AVAILABLE. [facility] ALSO WITHOUT PUMPS. SAFE DEPOSIT ATTENDANT AWARE. WILL CONTINUE TO MONITOR.
[2020-06-13 05:10] LABS: BASOPHILS % (AUTO) 0.1 % (0.0-2.0); HEMATOCRIT 28 % (33-45); HEMOGLOBIN 9.3 g/dL (11.5-14.8); LYMPHOCYTES # (AUTO) 0.3 /CMM (0.8-4.8); LYMPHOCYTES % (AUTO) 3.4 % (20.0-44.0); MEAN CORPUSCULAR HGB CONC 33 g/dl (31.0-36.0); MEAN CORPUSCULAR VOLUME 88 fL (82-100); MONOCYTES % (AUTO) 0.2 % (2.0-12.0); NEUTROPHILS # (AUTO) 9.4 /CMM (1.8-8.9); NEUTROPHILS % (AUTO) 94.3 % (43.0-81.0); PLATELET COUNT (AUTO) 212 /CMM (150-450); RED BLOOD CELL COUNT(AUTO) 3.22 MIL/uL (4.0-5.2); WHITE BLOOD COUNT (AUTO) 9.9 K/uL (4.3-11.0)
[2020-06-13 05:22] LABS: CALCIUM, SERUM 8.3 mg/dL (8.5-10.1); CREATININE 1.1 mg/dL (0.6-1.3); MAGNESIUM 2.7 mg/dL (1.8-2.4); PHOSPHORUS 3.8 mg/dL (2.5-4.9)
--- NOTE | 2020-06-13 05:30 | NUR ---
HERNANDO NOTE STILL NO FEEDING PUMP AVAILABLE. PER , CHECK BLOOD SUGAR Q6H. ORDER NOTED AND CARRIED OUT. Addendum: 06/13/20 at 0640 by LESLIE CONLEY RN BLOOD SUGAR AT [phone]. PER , HELD INSULIN DUE TO NO FEEDING.
[2020-06-13 05:48] LABS: ABG OXYGEN SATURATION 87.9 % (92.0-98.5); ABG PCO2 35.8 mmHg (35.0-45.0); ABG PH 7.426 (7.350-7.450); ABG PO2 53.8 mmHg (75.0-100.0); AaDO2 262.4 mmHg; O2Hb 87.9 % (94.0-97.0); PEEP,BG 8 cm H2O; SITE, ABG Right Radial; VT, ABG 400 mL
--- NOTE | 2020-06-13 05:55 | NUR ---
RN NOTE ABG RESULTED. PO2 53.8. O2 SATURATION WNL. PT WITHOUT SIGNS OF RESPIRATORY DISTRESS. RT AT BEDSIDE INCREASED FI02 TO 80%.
[2020-06-13] MEDS: BLOOD SUGAR DIAGNOSTIC 1 EACH STRIP IN SCH ×4 (06:00→18:24)
[2020-06-13 06:19] LABS: BAND % (MANUAL) 4 % (0.0-5.0); EOSINOPHILS % (MANUAL) 4 % (0-4); LYMPHOCYTES % (MANUAL) 4 % (16-48); MONOCYTES % (MANUAL) 2 % (0-11.0); NEUTROPHILS % (MANUAL) 86 (42-76)
[2020-06-13] MEDS ORDERED: GLUCERNA 1.2 1,000 ML BOTTLE NG PRN (07:30)
--- NOTE | 2020-06-13 07:39 | NUR ---
RN NOTE NO ACUTE CHANGES OBSERVED OVERNIGHT. PT SEDATED AND INTUBATED AND TOLERATING VENT SETTINGS WELL. IV LINES PATENT AND INTACT WITHOUT COMPLICATIONS NOTED AT SITES. DORAN CATHETER PATENT AND IN PLACE DRAINING URINE. VITAL SIGNS STABLE VIA BEDSIDE MONITOR. NGT PATENT AND IN PLACE VERIFIED BY AUSCULTATION AND ASPIRATION OF GASTRIC CONTENTS. NOTIFIED MORNING RN TO FOLLOW UP WITH TUBE FEEDING. ALL NEEDS MET AND ATTENDED TO, SAFETY MEASURES IN PLACE PER PROTOCOL, ENDORSED TO MORNING RN FOR MASSIMO.
--- NOTE | 2020-06-13 08:00 | NUR ---
floriculture professor received pt in bed sedated on propofol intubated settings tube placement noticed, provided sedation vacation, pt wakes up extremily uncomfotable breathing against vent reaching for the lines, rr 30-35 sat decreased to 90 resumed sedation as ordered, iv access gerardo picc patent infusing meds as ordered, held pressors to challenge pt to maintain sbp on her own. tejada cath present draining urine, og tube clmped notified md regarding dietary consult awaiting for orders (Pooja). Safety measures taken release restraints checked for skin breakdown and circulation provided rom reapplied restraints for safety reasons, turn and reposition in bed will cont to monitor.
[2020-06-13] MEDS: DEXAMETHASONE SOD PHOSPHATE 10 MG/ML VIAL IJ SCH (09:30)
[2020-06-13] MEDS: ASPIRIN 81 MG TAB.CHEW PO SCH (09:30)
[2020-06-13] MEDS: PANTOPRAZOLE 40 MG/PACK PACK PO SCH (09:30)
[2020-06-13] MEDS: GLIMEPIRIDE 4 MG TABLET PO SCH (09:30)
[2020-06-13] MEDS: CLOPIDOGREL BISULFATE 75 MG TABLET PO SCH (09:30)
[2020-06-13] MEDS: ENOXAPARIN SODIUM 40 MG/0.4 ML DISP.SYRIN SQ SCH (09:32)
[2020-06-13] MEDS: INSULIN REGULAR, HUMAN 100 UNIT/ML 3 ML VIAL SQ PRN (12:43)
--- NOTE | 2020-06-13 16:32 | NUR ---
horticultural specialty grower pt sbp droped to 80s resumed levophed as ordered for pressure support.
--- NOTE | 2020-06-13 19:20 | NUR ---
RN NOTE RECIEVED PT SEDATED AND INTUBATED AND TOLERATING VENT SETTINGS WELL. NO SIGNS OF PAIN OR DISCOMFORT. LEVOPHED OFF PER MORNING RN. CURRENTLY ON DIPROVAN FOR SEDATION ORDERED. IV LINES PATENT AND INTACT WITHOUT COMPLICATIONS NOTED AT SITES. DORAN CATHETER PATENT AND IN PLACE DRAINING URINE. VITAL SIGNS STABLE VIA BEDSIDE MONITOR. NGT PATENT AND IN PLACE VERIFIED BY AUSCULTATION AND ASPIRATION OF GASTRIC CONTENTS. PENDING DIETARY CONSULT PER MD. WILL TURN AND REPOSITION Q2H PER PT TOLERANCE, SAFETY MEASURES IN PLACE PER PROTOCOL, WILL WILL MONITOR PT THROUGHOUHT SHIFT.
[2020-06-13] MEDS: CEFTRIAXONE 1 G in IV NS 0.9% 50 ML IV SCH (20:09)
[2020-06-13] MEDS: INSULIN GLARGINE, 100 UNIT/ML CARTRIDGE SQ SCH (22:00)
--- NOTE | 2020-06-13 22:34 | NUR ---
RN NOTE BLOOD SUGAR 153. LANTUS HELD DUE TO NPO STATUS.
[2020-06-14] VITALS (92 sets, daily range): BP systolic 65–185; BP diastolic 30–79
[2020-06-14] MEDS: BLOOD SUGAR DIAGNOSTIC 1 EACH STRIP IN SCH ×5 (01:35→23:36)
[2020-06-14] MEDS: PROPOFOL 100 ML IV PRN ×2 (02:10→17:02)
[2020-06-14 04:33] LABS: BASOPHILS % (AUTO) 0.3 % (0.0-2.0); EOSINOPHILS % (AUTO) 2.2 % (0.0-6.0); HEMATOCRIT 30 % (33-45); HEMOGLOBIN 9.8 g/dL (11.5-14.8); LYMPHOCYTES # (AUTO) 0.7 /CMM (0.8-4.8); LYMPHOCYTES % (AUTO) 6.3 % (20.0-44.0); MEAN CORPUSCULAR HGB CONC 33 g/dl (31.0-36.0); MEAN CORPUSCULAR VOLUME 89 fL (82-100); MONOCYTES % (AUTO) 0.2 % (2.0-12.0); NEUTROPHILS # (AUTO) 9.4 /CMM (1.8-8.9); PLATELET COUNT (AUTO) 195 /CMM (150-450); RED BLOOD CELL COUNT(AUTO) 3.37 MIL/uL (4.0-5.2); WHITE BLOOD COUNT (AUTO) 10.3 K/uL (4.3-11.0)
[2020-06-14 04:52] LABS: CALCIUM, SERUM 8.3 mg/dL (8.5-10.1); CARBON DIOXIDE 26 mmol/L (21-32); CHLORIDE 116 mmol/L (98-107); GLUCOSE 174 mg/dL (74-106); MAGNESIUM 2.4 mg/dL (1.8-2.4); PHOSPHORUS 3.8 mg/dL (2.5-4.9); POTASSIUM 4.4 mmol/L (3.5-5.1); SODIUM SERUM 150 mmol/L (136-145); UREA NITROGEN, BLOOD 67 mg/dL (7-18)
[2020-06-14 06:01] LABS: ABG BASE EXCESS -0.8 mmol/L; ABG OXYGEN SATURATION 95.6 % (92.0-98.5); ABG PCO2 39.4 mmHg (35.0-45.0); ABG PH 7.401 (7.350-7.450); ABG PO2 80.9 mmHg (75.0-100.0); AaDO2 303.6 mmHg; COHb 0.3 % (0.5-1.5); MetHb 0.3 % (0.0-1.5); SITE, ABG Right Radial
--- NOTE | 2020-06-14 06:53 | NUR ---
RN NOTE NO ACUTE CHANGES OBSERVED OVERNIGHT. PT SEDATED AND INTUBATED AND TOLERATING VENT SETTINGS WELL. RESUMED LEVOPHED DRIP DURING SHIFT DUE TO INSTANCE OF LOW BP. CURRENTLY ON DIPROVAN FOR SEDATION ORDERED. IV LINES PATENT AND INTACT WITHOUT COMPLICATIONS NOTED AT SITES. DORAN CATHETER PATENT AND IN PLACE DRAINING URINE. VITAL SIGNS STABLE VIA BEDSIDE MONITOR. NGT PATENT AND IN PLACE VERIFIED BY AUSCULTATION AND ASPIRATION OF GASTRIC CONTENTS. PENDING DIETARY CONSULT PER MD. TURNED AND REPOSITIONED Q2H PER PT TOLERANCE. ALL NEEDS MET AND ATTENDED TO, SAFETY MEASURES IN PLACE PER PROTOCOL, WILL ENDORSE TO MORNING RN FOR MASSIMO.
[2020-06-14] MEDS: PANTOPRAZOLE 40 MG/PACK PACK PO SCH (10:13)
[2020-06-14] MEDS: DEXAMETHASONE SOD PHOSPHATE 10 MG/ML VIAL IJ SCH (10:14)
[2020-06-14] MEDS: CLOPIDOGREL BISULFATE 75 MG TABLET PO SCH (10:14)
[2020-06-14] MEDS: ASPIRIN 81 MG TAB.CHEW PO SCH (10:14)
[2020-06-14] MEDS: GLIMEPIRIDE 4 MG TABLET PO SCH (10:14)
[2020-06-14] MEDS: NOREPINEPHRINE 8 MG in IV NS 0.9% 242 ML IV PRN (10:18)
[2020-06-14] MEDS: ENOXAPARIN SODIUM 40 MG/0.4 ML DISP.SYRIN SQ SCH (11:23)
[2020-06-14] MEDS: INSULIN REGULAR, HUMAN 100 UNIT/ML 3 ML VIAL SQ PRN ×2 (19:00→23:40)
--- NOTE | 2020-06-14 19:00 | NUR ---
received patient orally intubated on AC mode,not in any distress ,breathing regular and non labored.Sedated on propofol drip , moderately sedated ,respondes to pain when suctioned,+ cough and gag,slightly opens eyes,withdraws extremities to pain.Chest tube at left lateral chest to gravity drainage, intact.NGT clamped ,+ placement checked by auscultation,will start feeding with Glucerna @ 50 ml/hr. On Contact/Droplet isolation for Covid .
--- NOTE | 2020-06-14 20:26 | NUR ---
PT REC'D ORALLY INTUBATED VIA ETT 7.0 SECURED @ 23 CM LIP LINE ON MECH VENT WITH NOTED SETTINGS. NO RESPIRATORY DISTRESS NOTED AT THIS TIME. SX DONE. ALARMS ARE SET AND AUDIBLE. VENT PLUGGED INTO RED OUTLET. AMBU BAG@ BEDSIDE. WILL CONTINUE TO MONITOR T/O THE SHIFT.
[2020-06-14] MEDS: CEFTRIAXONE 1 G in IV NS 0.9% 50 ML IV SCH (20:55)
[2020-06-14] MEDS: INSULIN GLARGINE, 100 UNIT/ML CARTRIDGE SQ SCH (21:46)
[2020-06-14] MEDS: GLUCERNA 1.2 1,000 ML BOTTLE NG PRN (21:49)
[2020-06-15] VITALS (76 sets, daily range): BP systolic 82–152; BP diastolic 35–85
--- NOTE | 2020-06-15 | NUR ---
No change in status,remains sedated, responds to pain. On levophed drip now,BP labile,titrate Levophed as indicated to keep SBP 90>.
[2020-06-15] MEDS: PROPOFOL 100 ML IV PRN ×2 (03:23→16:15)
--- NOTE | 2020-06-15 04:00 | NUR ---
[facility] called for CXR result, spoke to Lily Rocha. CXR showed ET tube tip is 2.2 cm above the sachi ,and she's just reading the result as is that states "recommends adjusting the tube", ask her if it needs to be adjusted by how much ,she does not know. RT was made aware, as per RT patient is getting her TV and the tube is just at the right place,no adjustment needed as per RT.
[2020-06-15 04:55] LABS: BASOPHILS # (AUTO) 0.1 /CMM (0.0-0.2); BASOPHILS % (AUTO) 0.4 % (0.0-2.0); EOSINOPHILS % (AUTO) 2.6 % (0.0-6.0); HEMATOCRIT 32 % (33-45); HEMOGLOBIN 10.1 g/dL (11.5-14.8); LYMPHOCYTES # (AUTO) 0.7 /CMM (0.8-4.8); LYMPHOCYTES % (AUTO) 5.3 % (20.0-44.0); MEAN CORPUSCULAR HGB CONC 32 g/dl (31.0-36.0); MEAN CORPUSCULAR VOLUME 88 fL (82-100); MONOCYTES % (AUTO) 0.2 % (2.0-12.0); NEUTROPHILS # (AUTO) 11.8 /CMM (1.8-8.9); NEUTROPHILS % (AUTO) 91.5 % (43.0-81.0); PLATELET COUNT (AUTO) 213 /CMM (150-450); RED BLOOD CELL COUNT(AUTO) 3.61 MIL/uL (4.0-5.2); WHITE BLOOD COUNT (AUTO) 12.9 K/uL (4.3-11.0)
[2020-06-15 05:04] LABS: CARBON DIOXIDE 29 mmol/L (21-32); CHLORIDE 117 mmol/L (98-107); GLUCOSE 233 mg/dL (74-106); MAGNESIUM 2.5 mg/dL (1.8-2.4); PHOSPHORUS 3.4 mg/dL (2.5-4.9); POTASSIUM 4.1 mmol/L (3.5-5.1); SODIUM SERUM 152 mmol/L (136-145); UREA NITROGEN, BLOOD 62 mg/dL (7-18)
[2020-06-15] MEDS: BLOOD SUGAR DIAGNOSTIC 1 EACH STRIP IN SCH ×4 (06:05→23:39)
[2020-06-15] MEDS: INSULIN REGULAR, HUMAN 100 UNIT/ML 3 ML VIAL SQ PRN ×4 (06:08→23:49)
[2020-06-15] MEDS: ENOXAPARIN SODIUM 40 MG/0.4 ML DISP.SYRIN SQ SCH (10:34)
[2020-06-15] MEDS: ASPIRIN 81 MG TAB.CHEW PO SCH (10:35)
[2020-06-15] MEDS: DEXAMETHASONE SOD PHOSPHATE 10 MG/ML VIAL IJ SCH (10:35)
[2020-06-15] MEDS: PANTOPRAZOLE 40 MG/PACK PACK PO SCH (10:35)
[2020-06-15] MEDS: GLIMEPIRIDE 4 MG TABLET PO SCH (10:38)
[2020-06-15] MEDS: CLOPIDOGREL BISULFATE 75 MG TABLET PO SCH (10:42)
--- NOTE | 2020-06-15 19:00 | NUR ---
RN OPENING NOTE RECEIVED PATIENT IN BED INTUBATED ORALLY SEDATED,ON MECHANICAL VENT SETTING TRACH/ETT 01/15 AC 20 TV 400 FIO2 50% PEEP 5,O2:98% ON PROPOFOL DRIP 15MCG/KG/MIN,HAS NG TUBE PLACEMENT CHECKED IN PLACE NO RESIDUAL NOTED,ON GLUCERNA 1.2 50CC/HR.BILATERAL UPPER EXTREMITIES SWELLING,IV SITE IS ON RIGHT UPPER ARM PICC LINE INTACT PATENT,HEAD OF BED ELEVATED,SAFETY MEASURE IMPLEMENT CONTINUE TO MONITOR.
--- NOTE | 2020-06-15 19:01 | NUR ---
RN NOTED PATIENT IS ON DORAN CATHETER, URINE DRAINING YELLOW ON GRAVITY CONTINUE TO MONITOR.
[2020-06-15] MEDS: CEFTRIAXONE 1 G in IV NS 0.9% 50 ML IV SCH (19:27)
[2020-06-15] MEDS: GLUCERNA 1.2 1,000 ML BOTTLE NG PRN (19:50)
[2020-06-15] MEDS: INSULIN GLARGINE, 100 UNIT/ML CARTRIDGE SQ SCH (21:44)
[2020-06-16] VITALS (61 sets, daily range): BP systolic 75–134; BP diastolic 32–70
[2020-06-16] MEDS: PROPOFOL 100 ML IV PRN ×2 (00:38→17:42)
[2020-06-16 04:55] LABS: BASOPHILS # (AUTO) 0.1 /CMM (0.0-0.2); BASOPHILS % (AUTO) 0.9 % (0.0-2.0); EOSINOPHILS % (AUTO) 1.7 % (0.0-6.0); HEMATOCRIT 29 % (33-45); HEMOGLOBIN 9.5 g/dL (11.5-14.8); LYMPHOCYTES # (AUTO) 0.6 /CMM (0.8-4.8); LYMPHOCYTES % (AUTO) 6.2 % (20.0-44.0); MEAN CORPUSCULAR HGB CONC 32 g/dl (31.0-36.0); MEAN CORPUSCULAR VOLUME 89 fL (82-100); MONOCYTES # (AUTO) 0.2 /CMM (0.1-1.30); MONOCYTES % (AUTO) 2.4 % (2.0-12.0); NEUTROPHILS # (AUTO) 8.2 /CMM (1.8-8.9); NEUTROPHILS % (AUTO) 88.8 % (43.0-81.0); PLATELET COUNT (AUTO) 163 /CMM (150-450); RED BLOOD CELL COUNT(AUTO) 3.31 MIL/uL (4.0-5.2); WHITE BLOOD COUNT (AUTO) 9.2 K/uL (4.3-11.0)
[2020-06-16 04:58] LABS: CALCIUM, SERUM 9.6 mg/dL (8.5-10.1); CARBON DIOXIDE 29 mmol/L (21-32); CHLORIDE 117 mmol/L (98-107); CREATININE 0.9 mg/dL (0.6-1.3); GLUCOSE 258 mg/dL (74-106); MAGNESIUM 2.5 mg/dL (1.8-2.4); POTASSIUM 4.5 mmol/L (3.5-5.1); SODIUM SERUM 152 mmol/L (136-145); UREA NITROGEN, BLOOD 58 mg/dL (7-18)
[2020-06-16] MEDS: BLOOD SUGAR DIAGNOSTIC 1 EACH STRIP IN SCH ×4 (05:34→23:19)
[2020-06-16] MEDS: INSULIN REGULAR, HUMAN 100 UNIT/ML 3 ML VIAL SQ PRN ×4 (05:45→23:19)
--- NOTE | 2020-06-16 06:44 | NUR ---
RN NOTE RECEIVED CHEST XRAY RESULTS Increased left lower lobe pneumonia and small effusion. There is also increased right basilar pneumonia,CALLED DR HONEYCUTT MADE AWARE CONTINUE TO MONITOR.
--- NOTE | 2020-06-16 07:15 | NUR ---
REPORT RECEIVED FROM MARQUISE VILLAGOMEZ FOR MASSIMO. RESTING QUIETLY IN BED, SEDATED WITH PROPOFOL AT 15MCG/KG/MIN, ADEQUATELY SEDATED. TOLERATING ON VENT AT ORDERED SETTINGS. DORAN CATH DRAINING TO GRAVITY. MARK HEELS AND ELBOWS OFFLOADED. HOB ELEVATED. OGT IN PLACE, PLACEMENT VERIFIED, FEEDINGS RUNNING. ON ENGINEERING AND SCIENTIFIC PROGRAMMER SHOWING SR. Addendum: 06/16/20 at 1543 by JUN RIVERA RN CHEST TUBE DRAINING TO GRAVITY/WATER SEAL, NO NEW DRAINAGE NOTED AT THIS TIME. MARK SOFT WRIST RESTRAINTS IN PLACE, SKIN AND CIRCULATION CHECKED
--- NOTE | 2020-06-16 07:40 | NUR ---
RT PEREIRA AT BEDSIDE FOR WEANING TRIAL. PROPOFOL TURNED OFF.
--- NOTE | 2020-06-16 08:03 | NUR ---
PT PLACED ON SIMV BY KELLI CORTEZ
--- NOTE | 2020-06-16 08:10 | NUR ---
PER RT, PT FAILED WEANING TRIAL. RETURNED TO PREVIOUS SETTINGS. RT AWARE OF LOW O2 SAT.
[2020-06-16] MEDS: ASPIRIN 81 MG TAB.CHEW PO SCH (09:30)
[2020-06-16] MEDS: DEXAMETHASONE SOD PHOSPHATE 10 MG/ML VIAL IJ SCH (09:30)
[2020-06-16] MEDS: CLOPIDOGREL BISULFATE 75 MG TABLET PO SCH (09:30)
[2020-06-16] MEDS: PANTOPRAZOLE 40 MG/PACK PACK PO SCH (09:30)
[2020-06-16] MEDS: GLIMEPIRIDE 4 MG TABLET PO SCH (09:30)
[2020-06-16] MEDS: ENOXAPARIN SODIUM 40 MG/0.4 ML DISP.SYRIN SQ SCH (13:10)
--- NOTE | 2020-06-16 15:09 | NUR ---
RESTING QUIETLY, NAD NOTED, REMAINS ON PROPOFOL AT 15MCG/KG/MIN. HOB ELEVATED. NOTED PERIODS OF DESATURATION BUT RESOLVES WITH REPOSITIONING/RAISE HOB AND SUCTION
[2020-06-16] MEDS: GLUCERNA 1.2 1,000 ML BOTTLE NG PRN (17:49)
--- NOTE | 2020-06-16 19:13 | NUR ---
REPORT GIVEN TO RUTH VILLAGOMEZ FOR MASSIMO. NAD NOTED
--- NOTE | 2020-06-16 20:00 | NUR ---
RT NOTE Pt received intubated via 7.0 ETT @ 23cm. Airway is secure and patent. Vent is on ordered setting and plugged into red outlet w alarms set and audible. Pt sx'd w no adverse reactions. Will continue to monitor. Addendum: 06/16/20 at 2104 by CLAIRE CANO RT Amended: Links added.
[2020-06-16] MEDS: INSULIN GLARGINE, 100 UNIT/ML CARTRIDGE SQ SCH (23:17)
[2020-06-17] VITALS (32 sets, daily range): BP systolic 79–134; BP diastolic 35–84
[2020-06-17] MEDS: PROPOFOL 100 ML IV PRN ×3 (03:37→22:30)
[2020-06-17 04:35] LABS: BASOPHILS # (AUTO) 0.1 /CMM (0.0-0.2); BASOPHILS % (AUTO) 0.8 % (0.0-2.0); EOSINOPHILS % (AUTO) 1.6 % (0.0-6.0); HEMATOCRIT 30 % (33-45); HEMOGLOBIN 9.5 g/dL (11.5-14.8); LYMPHOCYTES # (AUTO) 0.7 /CMM (0.8-4.8); LYMPHOCYTES % (AUTO) 4.6 % (20.0-44.0); MEAN CORPUSCULAR HGB CONC 32 g/dl (31.0-36.0); MEAN CORPUSCULAR VOLUME 89 fL (82-100); MONOCYTES # (AUTO) 0.3 /CMM (0.1-1.30); MONOCYTES % (AUTO) 1.8 % (2.0-12.0); NEUTROPHILS % (AUTO) 91.2 % (43.0-81.0); PLATELET COUNT (AUTO) 156 /CMM (150-450); RED BLOOD CELL COUNT(AUTO) 3.35 MIL/uL (4.0-5.2); WHITE BLOOD COUNT (AUTO) 14.3 K/uL (4.3-11.0)
[2020-06-17 04:46] LABS: CALCIUM, SERUM 9.8 mg/dL (8.5-10.1); CREATININE 0.9 mg/dL (0.6-1.3); MAGNESIUM 2.3 mg/dL (1.8-2.4); PHOSPHORUS 3.4 mg/dL (2.5-4.9); POTASSIUM 4.7 mmol/L (3.5-5.1)
[2020-06-17] MEDS: INSULIN REGULAR, HUMAN 100 UNIT/ML 3 ML VIAL SQ PRN ×4 (07:01→22:34)
[2020-06-17] MEDS: BLOOD SUGAR DIAGNOSTIC 1 EACH STRIP IN SCH ×4 (07:01→22:33)
--- NOTE | 2020-06-17 08:29 | NUR ---
patient remains in no acute distress in bed. patient did not have any significant change in condition during shift. all needs met, all orders carried out. will endorse care to am RN for continuity fo care.
[2020-06-17] MEDS: ENOXAPARIN SODIUM 40 MG/0.4 ML DISP.SYRIN SQ SCH (10:00)
[2020-06-17] MEDS: ASPIRIN 81 MG TAB.CHEW PO SCH (10:00)
[2020-06-17] MEDS: PANTOPRAZOLE 40 MG/PACK PACK PO SCH (10:00)
[2020-06-17] MEDS: GLIMEPIRIDE 4 MG TABLET PO SCH (10:00)
[2020-06-17] MEDS: DEXAMETHASONE SOD PHOSPHATE 10 MG/ML VIAL IJ SCH (10:00)
[2020-06-17] MEDS: CLOPIDOGREL BISULFATE 75 MG TABLET PO SCH (10:01)
[2020-06-17] MEDS: INSULIN GLARGINE, 100 UNIT/ML CARTRIDGE SQ SCH (22:32)
[2020-06-17] MEDS: IV NS 0.9% 250 ML IV PRN (22:35)
[2020-06-17] MEDS: GLUCERNA 1.2 1,000 ML BOTTLE NG PRN (22:36)
[2020-06-18] VITALS (27 sets, daily range): BP systolic 79–126; BP diastolic 35–67
[2020-06-18 04:42] LABS: BASOPHILS # (AUTO) 0.2 /CMM (0.0-0.2); BASOPHILS % (AUTO) 1.5 % (0.0-2.0); EOSINOPHILS % (AUTO) 0.5 % (0.0-6.0); HEMATOCRIT 28 % (33-45); HEMOGLOBIN 8.9 g/dL (11.5-14.8); LYMPHOCYTES # (AUTO) 0.5 /CMM (0.8-4.8); LYMPHOCYTES % (AUTO) 4.4 % (20.0-44.0); MEAN CORPUSCULAR HGB CONC 32 g/dl (31.0-36.0); MEAN CORPUSCULAR VOLUME 89 fL (82-100); MONOCYTES # (AUTO) 0.2 /CMM (0.1-1.30); MONOCYTES % (AUTO) 1.6 % (2.0-12.0); NEUTROPHILS # (AUTO) 11.5 /CMM (1.8-8.9); PLATELET COUNT (AUTO) 158 /CMM (150-450); WHITE BLOOD COUNT (AUTO) 12.5 K/uL (4.3-11.0)
[2020-06-18 04:54] LABS: CALCIUM, SERUM 9.8 mg/dL (8.5-10.1); CARBON DIOXIDE 30 mmol/L (21-32); CHLORIDE 115 mmol/L (98-107); CREATININE 1.1 mg/dL (0.6-1.3); GLUCOSE 269 mg/dL (74-106); MAGNESIUM 2.4 mg/dL (1.8-2.4); PHOSPHORUS 4.2 mg/dL (2.5-4.9); POTASSIUM 4.5 mmol/L (3.5-5.1); SODIUM SERUM 151 mmol/L (136-145); UREA NITROGEN, BLOOD 72 mg/dL (7-18)
[2020-06-18 05:55] LABS: ABG BASE EXCESS 3.8 mmol/L; ABG OXYGEN SATURATION 91.7 % (92.0-98.5); ABG PCO2 39.7 mmHg (35.0-45.0); ABG PH 7.463 (7.350-7.450); ABG PO2 61.9 mmHg (75.0-100.0); AaDO2 322.2 mmHg; COHb 0.5 % (0.5-1.5); MetHb 0.3 % (0.0-1.5); SITE, ABG Right Radial
[2020-06-18] MEDS: BLOOD SUGAR DIAGNOSTIC 1 EACH STRIP IN SCH ×4 (06:14→23:09)
[2020-06-18] MEDS: INSULIN REGULAR, HUMAN 100 UNIT/ML 3 ML VIAL SQ PRN (06:15)
[2020-06-18] MEDS: CLOPIDOGREL BISULFATE 75 MG TABLET PO SCH (08:30)
[2020-06-18] MEDS: ASPIRIN 81 MG TAB.CHEW PO SCH (08:30)
[2020-06-18] MEDS: GLIMEPIRIDE 4 MG TABLET PO SCH (08:30)
[2020-06-18] MEDS: PANTOPRAZOLE 40 MG/PACK PACK PO SCH (08:31)
[2020-06-18] MEDS: ENOXAPARIN SODIUM 40 MG/0.4 ML DISP.SYRIN SQ SCH (08:33)
[2020-06-18] MEDS: GLUCERNA 1.2 1,000 ML BOTTLE NG PRN (14:18)
[2020-06-18] MEDS: PROPOFOL 100 ML IV PRN ×2 (18:35→22:22)
[2020-06-18] MEDS: INSULIN GLARGINE, 100 UNIT/ML CARTRIDGE SQ SCH (22:23)
[2020-06-19] VITALS (75 sets, daily range): BP systolic 63–127; BP diastolic 31–79
[2020-06-19] MEDS: IV NS 0.9% 250 ML IV PRN (05:21)
[2020-06-19 05:44] LABS: BASOPHILS # (AUTO) 0.1 /CMM (0.0-0.2); BASOPHILS % (AUTO) 0.8 % (0.0-2.0); EOSINOPHILS % (AUTO) 1.6 % (0.0-6.0); HEMATOCRIT 28 % (33-45); LYMPHOCYTES # (AUTO) 0.7 /CMM (0.8-4.8); MEAN CORPUSCULAR HGB CONC 32 g/dl (31.0-36.0); MEAN CORPUSCULAR VOLUME 89 fL (82-100); MONOCYTES # (AUTO) 0.2 /CMM (0.1-1.30); MONOCYTES % (AUTO) 1.6 % (2.0-12.0); NEUTROPHILS # (AUTO) 12.2 /CMM (1.8-8.9); PLATELET COUNT (AUTO) 152 /CMM (150-450); RED BLOOD CELL COUNT(AUTO) 3.13 MIL/uL (4.0-5.2); WHITE BLOOD COUNT (AUTO) 13.4 K/uL (4.3-11.0)
[2020-06-19 06:31] LABS: CALCIUM, SERUM 9.9 mg/dL (8.5-10.1); CREATININE 0.9 mg/dL (0.6-1.3); MAGNESIUM 2.4 mg/dL (1.8-2.4); PHOSPHORUS 3.8 mg/dL (2.5-4.9); POTASSIUM 4.2 mmol/L (3.5-5.1)
[2020-06-19] MEDS: BLOOD SUGAR DIAGNOSTIC 1 EACH STRIP IN SCH ×3 (06:40→17:52)
[2020-06-19] MEDS: PROPOFOL 100 ML IV PRN ×3 (06:40→23:22)
--- NOTE | 2020-06-19 07:34 | NUR ---
RECEIVED PATIENT IN BED. NO ACUTE DISTRESS NOTED. PATIENT SEDATED ON PROPOFOL. PATIENT INTUBATED ON MECHANICAL VENTILATOR, TOLERATING SETTINGS WELL. PATIENT ON LEAN CONSULTANT, NSR NOTED. PATIENT RIGHT NGT IN PLACE, INTACT, FEEDING RUNNING AT 50. PATIENT DORAN CATHETER IN PLACE, INTACT, DRAINING TO GRAVITY. PATIENT CHIKA PICC LINE INTACT, PATENT, FLUSHED WELL. PATIENT RESTRAINTS IN PLACE. PATIENT SAFETY MEASURES IN PLACE, WILL CONTINUE TO MONITOR
[2020-06-19] MEDS: GLIMEPIRIDE 4 MG TABLET PO SCH (08:03)
[2020-06-19] MEDS: ASPIRIN 81 MG TAB.CHEW PO SCH (08:03)
[2020-06-19] MEDS: CLOPIDOGREL BISULFATE 75 MG TABLET PO SCH (08:03)
[2020-06-19] MEDS: PANTOPRAZOLE 40 MG/PACK PACK PO SCH (08:03)
[2020-06-19] MEDS: ENOXAPARIN SODIUM 40 MG/0.4 ML DISP.SYRIN SQ SCH (08:04)
[2020-06-19] MEDS: NOREPINEPHRINE 8 MG in IV NS 0.9% 242 ML IV PRN ×2 (09:36→21:50)
[2020-06-19] MEDS: INSULIN REGULAR, HUMAN 100 UNIT/ML 3 ML VIAL SQ PRN ×2 (11:49→17:55)
--- NOTE | 2020-06-19 18:41 | NUR ---
PATIENT IN BED. NO ACUTE DISTRESS NOTED. PATIENT SEDATED ON PROPOFOL. PATIENT INTUBATED ON MECHANICAL VENTILATOR, TOLERATING SETTINGS WELL. PATIENT ON PROJECTOR BOOTH OPERATOR, NSR NOTED. PATIENT RIGHT NGT IN PLACE, INTACT, FEEDING RUNNING AT 50. PATIENT DORAN CATHETER IN PLACE, INTACT, DRAINING TO GRAVITY. PATIENT CHIKA PICC LINE INTACT, PATENT, FLUSHED WELL. PATIENT RESTRAINTS IN PLACE. PATIENT SAFETY MEASURES IN PLACE, WILL ENDORSE PLAN OF CARE TO ONCOMING SHIFT
[2020-06-19] MEDS: GLUCERNA 1.2 1,000 ML BOTTLE NG PRN (18:43)
--- NOTE | 2020-06-19 19:41 | NUR ---
RT NOTE Pt received intubated via 7.0 ETT @ 23cm. Airway is secure and patent. Vent is on ordered setting and plugged into red outlet w alarms set and audible. Pt sx'd w no adverse reactions. Will continue to monitor t/o shift. Addendum: 06/19/20 at 1941 by MICHAEL ORTEGA RT Amended: Links added.
--- NOTE | 2020-06-19 19:51 | NUR ---
curriculum and instruction specialist. initial assessment. received the pt rest on the bed. orally intubated. sedated with diprivan. ett #7,lip 23,ac 20, tv 400, fio2 80%,peep 10. sat 98%. court recording monitor showing s tach. iv rt upper arm picc line diprivan 30mcg/kg/min,levophed 0.15mcg/kg/min, fc patent. angelina soft wrist restraint checked aaaand released. no injury or redness noted, rt nare ngt glucerna 30ml/h, hob elevated. lt side chest tube connected to the water seal. will continue to monitor vitals
[2020-06-19] MEDS: IV 1/2NS 1000 ML 1,000 ML IV PRN (21:49)
[2020-06-20] VITALS (92 sets, daily range): BP systolic 90–145; BP diastolic 39–65
[2020-06-20] MEDS: BLOOD SUGAR DIAGNOSTIC 1 EACH STRIP IN SCH ×5 (00:11→23:30)
[2020-06-20] MEDS: INSULIN GLARGINE, 100 UNIT/ML CARTRIDGE SQ SCH ×2 (00:13→22:30)
--- NOTE | 2020-06-20 02:06 | NUR ---
floriculturist. remaining same vent setting on. will continue to monitor vitals
--- NOTE | 2020-06-20 03:54 | NUR ---
curriculum director. am care, oral carem bed bath given. linen changed, remaining same vent settings . on. sat 98%, threat monitoring analyst showing s tach. iv rt upper arm picc line. fc patent, urine draining, angelina soft wrist restraint checked and released no injury or redness noted, hob elevated, ngt feeding tolerated well. diprivan 30mcg/kg/min,levophed o,1 mcg/kg/min,, diprivan 0.15 mivf 1/2ns 125 ml/h. hob elevated. , will continue to monitor vitals
[2020-06-20] MEDS: INSULIN REGULAR, HUMAN 100 UNIT/ML 3 ML VIAL SQ PRN ×3 (04:58→18:02)
[2020-06-20] MEDS: IV 1/2NS 1000 ML 1,000 ML IV PRN ×2 (05:04→15:47)
[2020-06-20 05:20] LABS: ABG BASE EXCESS 3.7 mmol/L; ABG PCO2 40.5 mmHg (35.0-45.0); ABG PH 7.456 (7.350-7.450); ABG PO2 82.3 mmHg (75.0-100.0); AaDO2 445.6 mmHg; COHb 0.3 % (0.5-1.5); O2Hb 95.7 % (94.0-97.0); SITE, ABG Right Radial; VENT MODE, BG AC 20 400 80% +10
--- NOTE | 2020-06-20 07:30 | NUR ---
RECEIVED PATIENT IN BED. NO ACUTE DISTRESS NOTED. PATIENT SEDATED ON PROPOFOL. PATIENT INTUBATED ON MECHANICAL VENTILATOR, TOLERATING SETTINGS WELL. PATIENT ON YARD ENGINEER, NSR-ST NOTED. PATIENT RIGHT NGT IN PLACE, INTACT, FEEDING RUNNING AT 50. PATIENT DORAN CATHETER IN PLACE, INTACT, DRAINING TO GRAVITY. PATIENT CHIKA PICC LINE INTACT, PATENT, FLUSHED WELL. PATIENT RESTRAINTS IN PLACE. PATIENT SAFETY MEASURES IN PLACE, WILL CONTINUE TO MONITOR
[2020-06-20] MEDS: PROPOFOL 100 ML IV PRN ×2 (07:59→16:28)
[2020-06-20] MEDS: PANTOPRAZOLE 40 MG/PACK PACK PO SCH (08:07)
[2020-06-20] MEDS: CLOPIDOGREL BISULFATE 75 MG TABLET PO SCH (08:07)
[2020-06-20] MEDS: ASPIRIN 81 MG TAB.CHEW PO SCH (08:07)
[2020-06-20] MEDS: GLIMEPIRIDE 4 MG TABLET PO SCH (08:07)
[2020-06-20] MEDS: ENOXAPARIN SODIUM 40 MG/0.4 ML DISP.SYRIN SQ SCH (08:09)
[2020-06-20] MEDS: NOREPINEPHRINE 8 MG in IV NS 0.9% 242 ML IV PRN (09:10)
[2020-06-20 10:12] LABS: CALCIUM, SERUM 9.9 mg/dL (8.5-10.1); CREATININE 1.1 mg/dL (0.6-1.3); POTASSIUM 4.5 mmol/L (3.5-5.1)
[2020-06-20] MEDS: GLUCERNA 1.2 1,000 ML BOTTLE NG PRN (17:09)
--- NOTE | 2020-06-20 18:36 | NUR ---
PATIENT IN BED. NO ACUTE DISTRESS NOTED. PATIENT SEDATED ON PROPOFOL. PATIENT INTUBATED ON MECHANICAL VENTILATOR, TOLERATING SETTINGS WELL. PATIENT ON RAINBOW TROUT FARM MANAGER, NSR NOTED. PATIENT RIGHT NGT IN PLACE, INTACT, FEEDING RUNNING AT 50. PATIENT DORAN CATHETER IN PLACE, INTACT, DRAINING TO GRAVITY. PATIENT CHIKA PICC LINE INTACT, PATENT, FLUSHED WELL. PATIENT RESTRAINTS IN PLACE. PATIENT SAFETY MEASURES IN PLACE, WILL ENDORSE PLAN OF CARE TO ONCOMING SHIFT
[2020-06-21] VITALS (74 sets, daily range): BP systolic 90–132; BP diastolic 41–63
[2020-06-21] MEDS: PROPOFOL 100 ML IV PRN ×4 (00:56→23:20)
[2020-06-21] MEDS: IV 1/2NS 1000 ML 1,000 ML IV PRN (04:21)
[2020-06-21] MEDS: NOREPINEPHRINE 8 MG in IV NS 0.9% 242 ML IV PRN ×2 (04:22→23:21)
[2020-06-21 05:10] LABS: BASOPHILS % (AUTO) 0.3 % (0.0-2.0); EOSINOPHILS % (AUTO) 2.8 % (0.0-6.0); HEMATOCRIT 24 % (33-45); HEMOGLOBIN 7.5 g/dL (11.5-14.8); LYMPHOCYTES # (AUTO) 0.7 /CMM (0.8-4.8); LYMPHOCYTES % (AUTO) 6.2 % (20.0-44.0); MEAN CORPUSCULAR HGB CONC 32 g/dl (31.0-36.0); MEAN CORPUSCULAR VOLUME 90 fL (82-100); MONOCYTES # (AUTO) 0.2 /CMM (0.1-1.30); MONOCYTES % (AUTO) 1.8 % (2.0-12.0); NEUTROPHILS # (AUTO) 10.3 /CMM (1.8-8.9); NEUTROPHILS % (AUTO) 88.9 % (43.0-81.0); PLATELET COUNT (AUTO) 114 /CMM (150-450); RED BLOOD CELL COUNT(AUTO) 2.62 MIL/uL (4.0-5.2); WHITE BLOOD COUNT (AUTO) 11.6 K/uL (4.3-11.0)
[2020-06-21 05:23] LABS: CALCIUM, SERUM 9.4 mg/dL (8.5-10.1); CREATININE 0.8 mg/dL (0.6-1.3); MAGNESIUM 2.7 mg/dL (1.8-2.4); PHOSPHORUS 3.5 mg/dL (2.5-4.9); POTASSIUM 4.1 mmol/L (3.5-5.1)
[2020-06-21] MEDS: BLOOD SUGAR DIAGNOSTIC 1 EACH STRIP IN SCH ×4 (06:19→23:04)
[2020-06-21] MEDS: GLIMEPIRIDE 4 MG TABLET PO SCH (08:55)
[2020-06-21] MEDS: ENOXAPARIN SODIUM 40 MG/0.4 ML DISP.SYRIN SQ SCH (08:56)
[2020-06-21] MEDS: ASPIRIN 81 MG TAB.CHEW PO SCH (08:57)
[2020-06-21] MEDS: PANTOPRAZOLE 40 MG/PACK PACK PO SCH (08:57)
[2020-06-21] MEDS: CLOPIDOGREL BISULFATE 75 MG TABLET PO SCH (08:57)
[2020-06-21] MEDS: INSULIN REGULAR, HUMAN 100 UNIT/ML 3 ML VIAL SQ PRN ×3 (13:35→23:05)
[2020-06-21] MEDS: INSULIN GLARGINE, 100 UNIT/ML CARTRIDGE SQ SCH (23:04)
[2020-06-22] VITALS (96 sets, daily range): BP systolic 79–139; BP diastolic 40–92
[2020-06-22 04:53] LABS: BASOPHILS # (AUTO) 0.1 /CMM (0.0-0.2); BASOPHILS % (AUTO) 0.5 % (0.0-2.0); EOSINOPHILS % (AUTO) 2.2 % (0.0-6.0); HEMATOCRIT 27 % (33-45); HEMOGLOBIN 8.6 g/dL (11.5-14.8); LYMPHOCYTES # (AUTO) 0.5 /CMM (0.8-4.8); LYMPHOCYTES % (AUTO) 3.6 % (20.0-44.0); MEAN CORPUSCULAR HGB CONC 32 g/dl (31.0-36.0); MEAN CORPUSCULAR VOLUME 90 fL (82-100); MONOCYTES # (AUTO) 0.3 /CMM (0.1-1.30); NEUTROPHILS # (AUTO) 13.5 /CMM (1.8-8.9); NEUTROPHILS % (AUTO) 91.7 % (43.0-81.0); PLATELET COUNT (AUTO) 164 /CMM (150-450); RED BLOOD CELL COUNT(AUTO) 3.01 MIL/uL (4.0-5.2); WHITE BLOOD COUNT (AUTO) 14.8 K/uL (4.3-11.0)
[2020-06-22 05:00] LABS: BILIRUBIN,TOTAL 0.3 mg/dL (0.2-1.0); CALCIUM, SERUM 9.7 mg/dL (8.5-10.1); MAGNESIUM 2.2 mg/dL (1.8-2.4); PHOSPHORUS 3.7 mg/dL (2.5-4.9); POTASSIUM 4.4 mmol/L (3.5-5.1); TOTAL PROTEIN, SERUM 5.8 g/dL (6.4-8.2)
[2020-06-22 05:12] LABS: ALBUMIN 1.1 g/dL (3.4-5.0)
[2020-06-22 05:28] LABS: ABG BASE EXCESS -0.9 mmol/L; ABG OXYGEN SATURATION 91.8 % (92.0-98.5); ABG PCO2 39.3 mmHg (35.0-45.0); ABG PO2 64.2 mmHg (75.0-100.0); AaDO2 248.1 mmHg; COHb 0.6 % (0.5-1.5); MetHb 0.1 % (0.0-1.5); O2Hb 91.2 % (94.0-97.0); PEEP,BG 10 cm H2O; SITE, ABG Right Radial; VENT MODE, BG AC 50%; VT, ABG 400 mL
[2020-06-22] MEDS: BLOOD SUGAR DIAGNOSTIC 1 EACH STRIP IN SCH ×3 (05:53→18:44)
[2020-06-22] MEDS: INSULIN REGULAR, HUMAN 100 UNIT/ML 3 ML VIAL SQ PRN ×3 (05:56→18:44)
[2020-06-22] MEDS: PANTOPRAZOLE 40 MG/PACK PACK PO SCH (08:06)
[2020-06-22] MEDS: ASPIRIN 81 MG TAB.CHEW PO SCH (08:06)
[2020-06-22] MEDS: GLIMEPIRIDE 4 MG TABLET PO SCH (08:06)
[2020-06-22] MEDS: CLOPIDOGREL BISULFATE 75 MG TABLET PO SCH (08:06)
[2020-06-22] MEDS: ENOXAPARIN SODIUM 40 MG/0.4 ML DISP.SYRIN SQ SCH (08:14)
[2020-06-22] MEDS: PROPOFOL 100 ML IV PRN ×3 (09:49→21:27)
[2020-06-22] MEDS: GLUCERNA 1.2 1,000 ML BOTTLE NG PRN (12:14)
[2020-06-22] MEDS: IV 1/2NS 1000 ML 1,000 ML IV PRN (19:03)
[2020-06-22] MEDS: NOREPINEPHRINE 8 MG in IV NS 0.9% 242 ML IV PRN (20:00)
[2020-06-22] MEDS: ACETAMINOPHEN 325 MG TABLET PO PRN (21:35)
[2020-06-22] MEDS: INSULIN GLARGINE, 100 UNIT/ML CARTRIDGE SQ SCH (21:55)
[2020-06-23] VITALS (95 sets, daily range): BP systolic 80–157; BP diastolic 29–103
[2020-06-23] MEDS: BLOOD SUGAR DIAGNOSTIC 1 EACH STRIP IN SCH ×4 (00:08→18:26)
[2020-06-23] MEDS: INSULIN REGULAR, HUMAN 100 UNIT/ML 3 ML VIAL SQ PRN ×3 (00:22→18:27)
[2020-06-23 04:41] LABS: BASOPHILS % (AUTO) 0.3 % (0.0-2.0); EOSINOPHILS % (AUTO) 5.5 % (0.0-6.0); HEMATOCRIT 25 % (33-45); HEMOGLOBIN 8.1 g/dL (11.5-14.8); LYMPHOCYTES # (AUTO) 0.8 /CMM (0.8-4.8); LYMPHOCYTES % (AUTO) 7.4 % (20.0-44.0); MEAN CORPUSCULAR HGB CONC 32 g/dl (31.0-36.0); MEAN CORPUSCULAR VOLUME 90 fL (82-100); MONOCYTES # (AUTO) 0.2 /CMM (0.1-1.30); MONOCYTES % (AUTO) 1.9 % (2.0-12.0); NEUTROPHILS # (AUTO) 9.4 /CMM (1.8-8.9); NEUTROPHILS % (AUTO) 84.9 % (43.0-81.0); PLATELET COUNT (AUTO) 165 /CMM (150-450); RED BLOOD CELL COUNT(AUTO) 2.81 MIL/uL (4.0-5.2); WHITE BLOOD COUNT (AUTO) 11.1 K/uL (4.3-11.0)
[2020-06-23 04:52] LABS: CALCIUM, SERUM 9.6 mg/dL (8.5-10.1); CARBON DIOXIDE 29 mmol/L (21-32); CHLORIDE 106 mmol/L (98-107); CREATININE 0.9 mg/dL (0.6-1.3); GLUCOSE 181 mg/dL (74-106); MAGNESIUM 2.1 mg/dL (1.8-2.4); PHOSPHORUS 3.9 mg/dL (2.5-4.9); POTASSIUM 4.6 mmol/L (3.5-5.1); SODIUM SERUM 137 mmol/L (136-145); UREA NITROGEN, BLOOD 50 mg/dL (7-18)
[2020-06-23 05:46] LABS: ABG BASE EXCESS 0.7 mmol/L; ABG OXYGEN SATURATION 87.9 % (92.0-98.5); ABG PCO2 44.3 mmHg (35.0-45.0); ABG PH 7.385 (7.350-7.450); ABG PO2 54.7 mmHg (75.0-100.0); COHb 0.6 % (0.5-1.5); MetHb 0.3 % (0.0-1.5); O2Hb 87.1 % (94.0-97.0); PEEP,BG 10 cm H2O; SITE, ABG Left Radial; VENT MODE, BG AC 20 400 50% +10; VT, ABG 400 mL
--- NOTE | 2020-06-23 05:49 | NUR ---
RN NOTE RECEIVED CALL FROM RADIOLOGY C.XRAY SHOWED TRACE PNEUMOMEDIASTINUM. TIFFANY TYSON MADE AWARE ASKED FOR REPEAT XRAY AT [address] ORDER
[2020-06-23] MEDS: PROPOFOL 100 ML IV PRN ×4 (06:31→22:22)
--- NOTE | 2020-06-23 08:00 | NUR ---
PATIENT'S NGT DISLODGED. RE-INSERTED AND CHECKED FOR PROPER PLACEMENT.
[2020-06-23] MEDS: CLOPIDOGREL BISULFATE 75 MG TABLET PO SCH (08:02)
[2020-06-23] MEDS: GLIMEPIRIDE 4 MG TABLET PO SCH (08:02)
[2020-06-23] MEDS: PANTOPRAZOLE 40 MG/PACK PACK PO SCH (08:03)
[2020-06-23] MEDS: ASPIRIN 81 MG TAB.CHEW PO SCH (08:03)
[2020-06-23] MEDS: ENOXAPARIN SODIUM 40 MG/0.4 ML DISP.SYRIN SQ SCH (08:07)
--- NOTE | 2020-06-23 08:58 | NUR ---
vent changes below per dr. armendariz: fio2 60% peep +12 Addendum: 06/23/20 at 0859 by ERIC MI RT Amended: Links added.
[2020-06-23] MEDS: GLUCERNA 1.2 1,000 ML BOTTLE NG PRN (12:24)
[2020-06-23] MEDS: NOREPINEPHRINE 8 MG in IV NS 0.9% 242 ML IV PRN ×2 (14:49→22:25)
[2020-06-23] MEDS: IV 1/2NS 1000 ML 1,000 ML IV PRN (16:49)
--- NOTE | 2020-06-23 20:08 | NUR ---
RT NOTE Pt received intubated via 7.0 ETT @ 23cm. Airway is secure and patent. Vent is on ordered setting and plugged into red outlet w alarms set and audible. Pt sx'd w no adverse reactions. Will continue to monitor t/o shift. Addendum: 06/23/20 at 2009 by MICHAEL ORTEGA RT Amended: Links added.
[2020-06-23] MEDS: INSULIN GLARGINE, 100 UNIT/ML CARTRIDGE SQ SCH (22:26)
[2020-06-24] VITALS (96 sets, daily range): BP systolic 73–134; BP diastolic 38–73
[2020-06-24] MEDS: BLOOD SUGAR DIAGNOSTIC 1 EACH STRIP IN SCH ×4 (00:48→18:25)
[2020-06-24] MEDS: PROPOFOL 100 ML IV PRN ×5 (01:55→22:38)
[2020-06-24 04:27] LABS: BASOPHILS # (AUTO) 0.1 /CMM (0.0-0.2); EOSINOPHILS % (AUTO) 4.8 % (0.0-6.0); HEMATOCRIT 26 % (33-45); HEMOGLOBIN 8.3 g/dL (11.5-14.8); LYMPHOCYTES # (AUTO) 0.3 /CMM (0.8-4.8); MEAN CORPUSCULAR HGB CONC 32 g/dl (31.0-36.0); MEAN CORPUSCULAR VOLUME 90 fL (82-100); MONOCYTES # (AUTO) 0.3 /CMM (0.1-1.30); MONOCYTES % (AUTO) 2.6 % (2.0-12.0); NEUTROPHILS # (AUTO) 8.9 /CMM (1.8-8.9); NEUTROPHILS % (AUTO) 88.6 % (43.0-81.0); PLATELET COUNT (AUTO) 180 /CMM (150-450); WHITE BLOOD COUNT (AUTO) 10.1 K/uL (4.3-11.0)
[2020-06-24 04:38] LABS: CALCIUM, SERUM 9.4 mg/dL (8.5-10.1); CARBON DIOXIDE 27 mmol/L (21-32); CHLORIDE 104 mmol/L (98-107); CREATININE 0.7 mg/dL (0.6-1.3); GLUCOSE 261 mg/dL (74-106); MAGNESIUM 2.2 mg/dL (1.8-2.4); PHOSPHORUS 3.5 mg/dL (2.5-4.9); POTASSIUM 4.6 mmol/L (3.5-5.1); SODIUM SERUM 136 mmol/L (136-145); UREA NITROGEN, BLOOD 38 mg/dL (7-18)
[2020-06-24] MEDS: INSULIN REGULAR, HUMAN 100 UNIT/ML 3 ML VIAL SQ PRN ×3 (06:01→18:38)
[2020-06-24] MEDS: CLOPIDOGREL BISULFATE 75 MG TABLET PO SCH (08:11)
[2020-06-24] MEDS: GLIMEPIRIDE 4 MG TABLET PO SCH (08:11)
[2020-06-24] MEDS: PANTOPRAZOLE 40 MG/PACK PACK PO SCH (08:11)
[2020-06-24] MEDS: ASPIRIN 81 MG TAB.CHEW PO SCH (08:11)
[2020-06-24] MEDS: ENOXAPARIN SODIUM 40 MG/0.4 ML DISP.SYRIN SQ SCH (08:13)
[2020-06-24] MEDS: GLUCERNA 1.2 1,000 ML BOTTLE NG PRN (08:40)
[2020-06-24] MEDS: NOREPINEPHRINE 8 MG in IV NS 0.9% 242 ML IV PRN ×2 (09:10→22:37)
[2020-06-24 13:56] LABS: CHOLESTEROL 132 mg/dL (<200); HDL CHOLESTEROL 19 mg/dL (40-60); LDL 85 mg/dL (0-99); TRIGLYCERIDES 187 mg/dL (30-150)
[2020-06-24] MEDS: IV 1/2NS 1000 ML 1,000 ML IV PRN (18:39)
[2020-06-24] MEDS: INSULIN GLARGINE, 100 UNIT/ML CARTRIDGE SQ SCH (22:32)
[2020-06-25] VITALS (91 sets, daily range): BP systolic 83–142; BP diastolic 35–71
[2020-06-25] MEDS: BLOOD SUGAR DIAGNOSTIC 1 EACH STRIP IN SCH ×5 (00:45→22:17)
[2020-06-25] MEDS: INSULIN REGULAR, HUMAN 100 UNIT/ML 3 ML VIAL SQ PRN ×5 (00:52→22:19)
[2020-06-25] MEDS: PROPOFOL 100 ML IV PRN ×4 (03:58→20:23)
[2020-06-25 05:19] LABS: BASOPHILS % (AUTO) 0.2 % (0.0-2.0); EOSINOPHILS % (AUTO) 8.3 % (0.0-6.0); HEMATOCRIT 22 % (33-45); HEMOGLOBIN 7.1 g/dL (11.5-14.8); LYMPHOCYTES # (AUTO) 0.4 /CMM (0.8-4.8); LYMPHOCYTES % (AUTO) 6.1 % (20.0-44.0); MEAN CORPUSCULAR HGB CONC 32 g/dl (31.0-36.0); MEAN CORPUSCULAR VOLUME 91 fL (82-100); MONOCYTES # (AUTO) 0.2 /CMM (0.1-1.30); MONOCYTES % (AUTO) 3.1 % (2.0-12.0); NEUTROPHILS % (AUTO) 82.3 % (43.0-81.0); PLATELET COUNT (AUTO) 184 /CMM (150-450); WHITE BLOOD COUNT (AUTO) 7.3 K/uL (4.3-11.0)
[2020-06-25 05:35] LABS: CALCIUM, SERUM 9.1 mg/dL (8.5-10.1); CARBON DIOXIDE 27 mmol/L (21-32); CHLORIDE 104 mmol/L (98-107); CREATININE 0.8 mg/dL (0.6-1.3); GLUCOSE 225 mg/dL (74-106); MAGNESIUM 2.1 mg/dL (1.8-2.4); PHOSPHORUS 3.6 mg/dL (2.5-4.9); POTASSIUM 4.7 mmol/L (3.5-5.1); SODIUM SERUM 134 mmol/L (136-145); UREA NITROGEN, BLOOD 40 mg/dL (7-18)
[2020-06-25] MEDS: ASPIRIN 81 MG TAB.CHEW PO SCH (08:13)
[2020-06-25] MEDS: PANTOPRAZOLE 40 MG/PACK PACK PO SCH (08:13)
[2020-06-25] MEDS: CLOPIDOGREL BISULFATE 75 MG TABLET PO SCH (08:13)
[2020-06-25] MEDS: GLIMEPIRIDE 4 MG TABLET PO SCH (08:13)
[2020-06-25 08:26] LABS: ABG BASE EXCESS 0.4 mmol/L; ABG PCO2 50.1 mmHg (35.0-45.0); ABG PO2 84.5 mmHg (75.0-100.0); AaDO2 288.2 mmHg; COHb 0.8 % (0.5-1.5); MetHb 0.1 % (0.0-1.5); O2Hb 95.1 % (94.0-97.0); PEEP,BG 12 cm H2O; SITE, ABG Right Radial; VT, ABG 400 mL
[2020-06-25] MEDS: ENOXAPARIN SODIUM 40 MG/0.4 ML DISP.SYRIN SQ SCH (09:00)
--- NOTE | 2020-06-25 09:30 | NUR ---
RN NOTES LOVENOX WAS HELD, HGB DROPPED FROM 8.2 TO 7.1 , WILL CONTINUE TO MONITOR.
--- NOTE | 2020-06-25 09:32 | NUR ---
WOUND CARE CONSULT: REVIEWED CHART, NURSING DOCUMENTATION WHICH INDICATES INTUBATED PATIENT. RECOMMENDATIONS MADE FOR SKIN PROTECTION. DISCUSSED WITH NURSING STAFF. PT IS ON [facility] LOW AIRSS BED. MD IN AGREEMENT WITH PLAN OF CARE.
--- NOTE | 2020-06-25 16:30 | NUR ---
RN NOTES S/P TRANSFUION OF 1 UNIT OF BLOOD. TOLERATED WELL WITH NO REACTION NOTED.
[2020-06-25] MEDS: NOREPINEPHRINE 8 MG in IV NS 0.9% 242 ML IV PRN (16:38)
--- NOTE | 2020-06-25 18:00 | NUR ---
RN NOTES SPOKE TO DR. SCHROEDER WITH ORDERS TO GIVE AMIO 150MG BOLUS ONCE AND START ON DRIP. WILL CONTINUE TO MONITOR.
[2020-06-25] MEDS ORDERED: AMIODARONE 150 MG in IV D5W 100 ML IV ONE (18:30)
[2020-06-25] MEDS ORDERED: AMIODARONE 450 MG in IV D5W 250 ML IV PRN (18:30)
[2020-06-25] MEDS ORDERED: AMIODARONE 900 MG in IV D5W 482 ML IV PRN (18:30)
--- NOTE | 2020-06-25 18:30 | NUR ---
RN NOTES CALLED PHARMACY REGARDING AMIO, THEY SAID THER ARE STILL MAKING IT AND WILL SEND JODI. WILL ENDORSE TO PREVENTION COORDINATOR NURSE.
[2020-06-25] MEDS: IV 1/2NS 1000 ML 1,000 ML IV PRN (19:42)
[2020-06-25] MEDS: INSULIN GLARGINE, 100 UNIT/ML CARTRIDGE SQ SCH (22:17)
[2020-06-26] VITALS (49 sets, daily range): BP systolic 67–140; BP diastolic 32–72
[2020-06-26] MEDS: PROPOFOL 100 ML IV PRN ×3 (03:00→13:17)
[2020-06-26 04:18] LABS: BASOPHILS % (AUTO) 0.2 % (0.0-2.0); EOSINOPHILS % (AUTO) 3.7 % (0.0-6.0); HEMATOCRIT 28 % (33-45); LYMPHOCYTES # (AUTO) 0.4 /CMM (0.8-4.8); LYMPHOCYTES % (AUTO) 5.7 % (20.0-44.0); MEAN CORPUSCULAR HGB CONC 33 g/dl (31.0-36.0); MEAN CORPUSCULAR VOLUME 89 fL (82-100); MONOCYTES # (AUTO) 0.3 /CMM (0.1-1.30); MONOCYTES % (AUTO) 4.1 % (2.0-12.0); NEUTROPHILS # (AUTO) 6.3 /CMM (1.8-8.9); NEUTROPHILS % (AUTO) 86.3 % (43.0-81.0); PLATELET COUNT (AUTO) 223 /CMM (150-450); WHITE BLOOD COUNT (AUTO) 7.3 K/uL (4.3-11.0)
[2020-06-26 04:32] LABS: CALCIUM, SERUM 9.6 mg/dL (8.5-10.1); CREATININE 0.8 mg/dL (0.6-1.3); MAGNESIUM 2.2 mg/dL (1.8-2.4); PHOSPHORUS 3.8 mg/dL (2.5-4.9); POTASSIUM 4.8 mmol/L (3.5-5.1)
[2020-06-26] MEDS: AMIODARONE 450 MG in IV D5W 250 ML IV PRN ×2 (05:01→11:15)
[2020-06-26 05:28] LABS: ABG BASE EXCESS -0.8 mmol/L; ABG OXYGEN SATURATION 93.2 % (92.0-98.5); ABG PCO2 53.3 mmHg (35.0-45.0); ABG PH 7.304 (7.350-7.450); ABG PO2 68.9 mmHg (75.0-100.0); AaDO2 300.3 mmHg; COHb 1.4 % (0.5-1.5); MetHb 0.3 % (0.0-1.5); O2Hb 91.6 % (94.0-97.0); PEEP,BG 10 cm H2O; SITE, ABG Right Radial; VENT MODE, BG AC 20 400 60% +10; VT, ABG 400 mL
[2020-06-26] MEDS: BLOOD SUGAR DIAGNOSTIC 1 EACH STRIP IN SCH ×4 (06:00→23:19)
[2020-06-26] MEDS: INSULIN REGULAR, HUMAN 100 UNIT/ML 3 ML VIAL SQ PRN ×2 (07:11→13:30)
--- NOTE | 2020-06-26 07:21 | NUR ---
RN notes Patient in bed, sedated with no distress noted. Breathing even and unlabored. No physical manifestation of pain or discomfort ON Profopol drip at 50mcg/kg/hr, No adverse effect noted. On bilateral wrist restraint, in place. Released q 2 hours for circulation, hygiene and repositioning. On Levo drip at 0.1 to maintain sbp above 90's, no side effects noted. On Amio drip, no signs symptoms of adverse effect noted. Started amio drip at 05:00. Endorsed to change from 1 mg to 0.5mg at 11:00 after six hours. Will continue to monitor.
--- NOTE | 2020-06-26 07:30 | NUR ---
received pt, vented/intubated, on levophed at 0.1mcg/kg/min, propfol at 50mcg/kg/min, and amiodarone at 1mg/min. NAD noted. tejada draining to gravity. angelina soft wrist restraints in place for safety. HOB elevated, heels and elbows offloaded.
[2020-06-26] MEDS: PANTOPRAZOLE 40 MG/PACK PACK PO SCH (09:07)
[2020-06-26] MEDS: CLOPIDOGREL BISULFATE 75 MG TABLET PO SCH (09:07)
[2020-06-26] MEDS: GLIMEPIRIDE 4 MG TABLET PO SCH (09:07)
[2020-06-26] MEDS: ASPIRIN 81 MG TAB.CHEW PO SCH (09:07)
[2020-06-26] MEDS: ENOXAPARIN SODIUM 40 MG/0.4 ML DISP.SYRIN SQ SCH (09:08)
--- NOTE | 2020-06-26 09:38 | NUR ---
DR OLENA CARRENO ON PT. NOTIFIED HIM OF DISPLACED CHEST TUBE THIS AM. UPDATED ON PT STATUS. RECEIVED VERBAL ORDER FOR CHEST XRAY.
--- NOTE | 2020-06-26 09:40 | NUR ---
PT DESATTING TO 81% AFTER PEEP DECREASED TO 5. NOTIFIED CARLENE RT. RT ADJUSTING VENT AT THIS TIME. INCREASE FIO2 TO 80% FROM 65%.
--- NOTE | 2020-06-26 12:04 | NUR ---
RT at bedside for low O2 sat\
[2020-06-26] MEDS: IV 1/2NS 1000 ML 1,000 ML IV PRN ×2 (18:39→22:28)
--- NOTE | 2020-06-26 19:01 | NUR ---
report given to irving VILLAGOMEZ for MASSIMO. NAD noted at this time, satting well on 100% FiO2. remains on levophed at 0.1mcg/kg/min and propofol at 50mcg/kg/min and amiodarone at 0.5mg/min
[2020-06-26] MEDS: INSULIN GLARGINE, 100 UNIT/ML CARTRIDGE SQ SCH (23:19)
[2020-06-27] VITALS (94 sets, daily range): BP systolic 64–119; BP diastolic 29–59
[2020-06-27] MEDS: PROPOFOL 100 ML IV PRN ×4 (00:24→18:57)
[2020-06-27 05:28] LABS: BASOPHILS % (AUTO) 0.5 % (0.0-2.0); EOSINOPHILS % (AUTO) 7.6 % (0.0-6.0); HEMATOCRIT 27 % (33-45); HEMOGLOBIN 9.2 g/dL (11.5-14.8); LYMPHOCYTES # (AUTO) 0.6 /CMM (0.8-4.8); LYMPHOCYTES % (AUTO) 8.5 % (20.0-44.0); MEAN CORPUSCULAR HGB CONC 34 g/dl (31.0-36.0); MEAN CORPUSCULAR VOLUME 94 fL (82-100); MONOCYTES # (AUTO) 0.3 /CMM (0.1-1.30); MONOCYTES % (AUTO) 4.4 % (2.0-12.0); NEUTROPHILS # (AUTO) 5.4 /CMM (1.8-8.9); PLATELET COUNT (AUTO) 224 /CMM (150-450); WHITE BLOOD COUNT (AUTO) 6.9 K/uL (4.3-11.0)
[2020-06-27 05:51] LABS: CALCIUM, SERUM 9.8 mg/dL (8.5-10.1); CREATININE 0.8 mg/dL (0.6-1.3); MAGNESIUM 2.2 mg/dL (1.8-2.4); PHOSPHORUS 3.4 mg/dL (2.5-4.9); POTASSIUM 5.2 mmol/L (3.5-5.1)
[2020-06-27] MEDS: BLOOD SUGAR DIAGNOSTIC 1 EACH STRIP IN SCH ×4 (06:14→23:39)
--- NOTE | 2020-06-27 08:13 | NUR ---
Patient remains in no acute distress in bed. patient did not have any significant change in condition during shift. Patient tolerated vent setting well. Patient continues on Levo @ 0.1 with blood pressure above 90. Patient continues to be sedated via Propofol @ 50. Patient tolerating tube feeding well. bed in low lock position with rails up x 2. call light within reach and all safety measures ensured and carried out. will Endorse care to MARCEL Patterson RN for continuity of care.
--- NOTE | 2020-06-27 09:09 | NUR ---
VENT CHANGES BELOW PER DR. HYATT: FIO2 70% FIO2 Addendum: 06/27/20 at 0910 by ERIC MI RT Amended: Links added.
[2020-06-27] MEDS: GLIMEPIRIDE 4 MG TABLET PO SCH (09:25)
[2020-06-27] MEDS: CLOPIDOGREL BISULFATE 75 MG TABLET PO SCH (09:25)
[2020-06-27] MEDS: PANTOPRAZOLE 40 MG/PACK PACK PO SCH (09:26)
[2020-06-27] MEDS: ASPIRIN 81 MG TAB.CHEW PO SCH (09:26)
[2020-06-27] MEDS: ENOXAPARIN SODIUM 40 MG/0.4 ML DISP.SYRIN SQ SCH (09:27)
[2020-06-27] MEDS: NOREPINEPHRINE 8 MG in IV NS 0.9% 242 ML IV PRN (11:49)
[2020-06-27] MEDS: INSULIN REGULAR, HUMAN 100 UNIT/ML 3 ML VIAL SQ PRN ×3 (13:47→23:41)
[2020-06-27] MEDS: INSULIN GLARGINE, 100 UNIT/ML CARTRIDGE SQ SCH (23:42)
[2020-06-28] VITALS (12 sets, daily range): BP systolic 63–95; BP diastolic 26–72
[2020-06-28] MEDS: PROPOFOL 100 ML IV PRN (00:16)
[2020-06-28] MEDS: NOREPINEPHRINE 8 MG in IV NS 0.9% 242 ML IV PRN (01:46)
--- NOTE | 2020-06-28 01:53 | NUR ---
ICU/CUSTOMER RETENTION SPECIALIST PT'S VITAL SIGNS APPEAR NOT TO BE DOING WELL, WITH BP IN THE 70'S AND SATURATION 88%, AND HEART RYTHEM IS IRREGULAR. CHARGE NURSE WAS NOTIFIED, WHO THEN CALLED THE FAMILY TO COME AND SEE PT TO CHANGE CODE STATUS. FAMILY WAS THINKING ABOUT CHANGING STATUS BUT HAD NOT REACHED OUT TO STAFF ABOUT THIS. WITH CHANGE IN PT'S STATUS THE DAUGHTER CHANGED THE CODE STATUS TO DNR. CHARGE NURSE CHANGED THE CODE STATUS AND SPA COORDINATOR MD WAS NOTIFIED OF THIS. FAMILY IS EXPECTED TO COME TO SEE THE PT.
--- NOTE | 2020-06-28 02:20 | NUR ---
icu/salmon gillnet vessel operator pt's family at bedside as the heart rate decline to 40's then 30's. with no saturation.
--- NOTE | 2020-06-28 03:10 | NUR ---
icu/display card writer rn orthopaedic nurse ed pronounced the time of . family filled out the paper work. yellow metal earrings were given to family.
--- NOTE | 2020-06-28 04:36 | NUR ---
ICU/AIRPORT ELECTRICIAN BODY TAKEN DOWN TO [facility] [place].
== END 2020-06-28 02:54 | disposition expired | DRG 870 ==
LOC: ER 14:59 → TELE-TD 18:51 → TELE2 20:07 → ICU 06-05 21:18
PROVIDERS: ADMIT Nurse Practitioner Acute Care; ATTEND Nurse Practitioner Acute Care
PROC: XW033E5 Introduction of Remdesivir Anti-infective into Peripheral Vein, Percutaneous Approach, New Technology Group 5 (ICD-10-PCS; 2020-06-02)
PROC: 0BH18EZ Insertion of Endotracheal Airway into Trachea, Via Natural or Artificial Opening Endoscopic (ICD-10-PCS; 2020-06-05)
PROC: XW033H5 Introduction of Tocilizumab into Peripheral Vein, Percutaneous Approach, New Technology Group 5 (ICD-10-PCS; 2020-06-05)
PROC: 5A1955Z Respiratory Ventilation, Greater than 96 Consecutive Hours (ICD-10-PCS; principal; 2020-06-06)
PROC: XW13325 Transfusion of Convalescent Plasma (Nonautologous) into Peripheral Vein, Percutaneous Approach, New Technology Group 5 (ICD-10-PCS; 2020-06-06)
PROC: 0W9B30Z Drainage of Left Pleural Cavity with Drainage Device, Percutaneous Approach (ICD-10-PCS; 2020-06-06)
DX: A41.89 Other specified sepsis (principal); U07.1 COVID-19; J96.01 Acute respiratory failure with hypoxia; J12.89 Other viral pneumonia; I21.4 Non-ST elevation (NSTEMI) myocardial infarction; N17.0 Acute kidney failure with tubular necrosis; R65.21 Severe sepsis with septic shock; I21.A1 Myocardial infarction type 2; J93.9 Pneumothorax, unspecified; D68.59 Other primary thrombophilia; I13.0 Hypertensive heart and chronic kidney disease with heart failure and stage 1 through stage 4 chronic kidney disease, or unspecified chronic kidney disease; E87.2 Acidosis; E87.0 Hyperosmolality and hypernatremia; E87.1 Hypo-osmolality and hyponatremia; Z86.73 Personal history of transient ischemic attack (TIA), and cerebral infarction without residual deficits; I10 Essential (primary) hypertension; I25.10 Atherosclerotic heart disease of native coronary artery without angina pectoris; E86.0 Dehydration; E11.65 Type 2 diabetes mellitus with hyperglycemia; J45.909 Unspecified asthma, uncomplicated; Z95.1 Presence of aortocoronary bypass graft; Z98.62 Peripheral vascular angioplasty status; R13.10 Dysphagia, unspecified; N18.9 Chronic kidney disease, unspecified; I50.9 Heart failure, unspecified; T39.395A Adverse effect of other nonsteroidal anti-inflammatory drugs [NSAID], initial encounter; T44.5X5A Adverse effect of predominantly beta-adrenoreceptor agonists, initial encounter; Y92.009 Unspecified place in unspecified non-institutional (private) residence as the place of occurrence of the external cause; D64.9 Anemia, unspecified; E78.5 Hyperlipidemia, unspecified; I70.0 Atherosclerosis of aorta; Z79.4 Long term (current) use of insulin; Z79.02 Long term (current) use of antithrombotics/antiplatelets; M89.9 Disorder of bone, unspecified; E11.21 Type 2 diabetes mellitus with diabetic nephropathy; Z66 Do not resuscitate
CPT/HCPCS: 31720; 36415; 36600; 71045-TC; 80048-TC; 80053-TC; 80061-TC; 80076-TC; 81001; 82533; 82728-TC; 82803-TC; 82962-TC; 83605-TC; 83615-TC; 83735-TC; 84100-TC; 84439-TC; 84443-TC; 84478-TC; 84484-TC; 85025-TC; 85378-TC; 85610-TC; 85652-TC; 85730-TC; 86140; 86140-TC; 86480; 86850-TC; 87040-TC; 87070-TC; 87081-TC; 87086-TC; 87899; 94002-TC; 94003-TC; 94760-TC; 94799-TC; A4216; A4624; A6253; A6403; C1751; C9803; G0378; J0282; J0330; J0456; J0696; J1100; J1200; J1650; J1720; J1815; J1940; J3262; J3480; J3490; J7030; J7050; J7060; P9016-BL; P9017-BL; U0003